=== PATIENT | male | born 1965 | race American Indian/Alaskan Native ===

== ENCOUNTER 2016-05-22 09:47 | Emergency (ER) | payer OTHER ==
[2016-05-22 10:11] VITALS: BP 142/90
[2016-05-22] MEDS ORDERED: MOTRIN PO ONE (13:52)
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
== END 2016-05-22 14:15 | disposition home or self-care (01) ==
LOC: ED 09:47
DX: M54.5 Low back pain (principal); M25.551 Pain in right hip; V89.2XXA Person injured in unspecified motor-vehicle accident, traffic, initial encounter; Y92.488 Other paved roadways as the place of occurrence of the external cause; Y93.89 Activity, other specified; Y99.8 Other external cause status; K21.9 Gastro-esophageal reflux disease without esophagitis; F20.9 Schizophrenia, unspecified; F17.200 Nicotine dependence, unspecified, uncomplicated
CPT/HCPCS: 99282

== ENCOUNTER 2016-07-28 08:51 | Emergency (ER) | payer SELFPAY ==
[2016-07-28 09:44] VITALS: BP 130/77
[2016-07-28 11:13] LABS: Bilirubin,Urine NEG (Negative); Blood,Urine NEG (Negative); Ketones,Urine NEG (Negative); Leukocyte Esterase,Urine NEG (Negative); Nitrite,Urine NEG (Negative); Protein,Urine <15 mg/dL mg/dL (Negative); RBC,Urine < 1.0 /HPF (0.0-6.0); WBC,Urine < 1.0 /HPF (0.0-6.0)
--- NOTE | 2016-07-28 11:32 | Emergency Department Report ---
ED Male HPI - General Chief complaint: Urogenital-Male Stated complaint: RASH/DIFFICULTY URINATING/SIDE PAIN Time Seen by Provider: 07/28/16 11:12 Source: patient Mode of arrival: Ambulatory Limitations: No Limitations - History of Present Illness Initial comments: 51M PMH GERD, Schizophrenia p/w c/o x3-5 weeks of c/o mild difficulty urinating. States he occasionally struggles to void. Denies any penile, scrotal or groin lesions otherwise. Denies any hematuria, denies fever or chills, no abdominal pain, denies nausea or vomiting. States he is concerned his significant other may have had intercourse with someone else, requesting testing for STDs. AAOx3, NAD. denies any rectal pain. Has not seen primary care doctor. MD Complaint: dysuria Onset/Timin -: week(s) Severity: mild Severity scale (0 -10): 2 Quality: burning denies other symptoms - Related Data Previous Rx's Medication Instructions Recorded Last Taken Type HYDROcodone/APAP 7.5-325 [[place] 1 each PO Q6HR PRN #20 tablet 05/02/13 Unknown Rx 7.5/325 mg] Ibuprofen [Motrin 800 MG tab] 800 mg PO Q8HR PRN #30 tablet 05/22/16 Unknown Rx methOCARBAMOL [Robaxin TAB] 500 mg PO BID #20 tab 05/22/16 Unknown Rx Tamsulosin [Flomax] 0.4 mg PO QDAY #14 cap 07/28/16 Unknown Rx Allergies Allergy/AdvReac Type Severity Reaction Status Date / Time No Known Allergies Allergy Unverified 05/02/13 16:56 ED Review of Systems ROS: Stated complaint: RASH/DIFFICULTY URINATING/SIDE PAIN Other details as noted in HPI Constitutional: denies: chills, fever Eyes: denies: eye pain, eye discharge, vision change ENT: denies: ear pain, throat pain Respiratory: denies: cough, shortness of breath, wheezing Cardiovascular: denies: chest pain, palpitations Endocrine: no symptoms reported Gastrointestinal: denies: abdominal pain, nausea, diarrhea Genitourinary: dysuria. denies: urgency Musculoskeletal: denies: back pain, joint swelling, arthralgia Skin: denies: rash, lesions Neurological: denies: headache, weakness, paresthesias Psychiatric: denies: anxiety, depression Hematological/Lymphatic: denies: easy bleeding, easy bruising ED Past Medical Hx - Past Medical History Previous Medical History?: Yes Hx GERD: Yes Hx Psychiatric Treatment: Yes (schizophrenia) - Surgical History Additional Surgical History: Head, ear, knee - Social History Smoking Status: Current Every Day Smoker Substance Use Type: None - Medications Home Medications: Home Medications Medication Instructions Recorded Confirmed Last Taken Type HYDROcodone/APAP 7.5-325 [[place] 1 each PO Q6HR PRN #20 tablet 05/02/13 Unknown Rx 7.5/325 mg] Ibuprofen [Motrin 800 MG tab] 800 mg PO Q8HR PRN #30 tablet 05/22/16 Unknown Rx methOCARBAMOL [Robaxin TAB] 500 mg PO BID #20 tab 05/22/16 Unknown Rx Tamsulosin [Flomax] 0.4 mg PO QDAY #14 cap 07/28/16 Unknown Rx ED Physical Exam - General Limitations: No Limitations General appearance: alert, in no apparent distress - Head Head exam: Present: atraumatic, normocephalic - Eye Eye exam: Present: normal appearance - ENT ENT exam: Present: mucous membranes moist - Neck Neck exam: Present: normal inspection - Respiratory Respiratory exam: Present: normal lung sounds bilaterally. Absent: respiratory distress - Cardiovascular Cardiovascular Exam: Present: regular rate, normal rhythm. Absent: systolic murmur, diastolic murmur, rubs, gallop - GI/Abdominal GI/Abdominal exam: Present: soft, normal bowel sounds - Rectal Rectal exam: Present: deferred, normal prostate (nromal prostated on addison, no pain/tenderness) - Extremities Exam Extremities exam: Present: normal inspection - Back Exam Back exam: Present: normal inspection - Neurological Exam Neurological exam: Present: alert, oriented X3 - Psychiatric Psychiatric exam: Present: normal affect, normal mood - Skin Skin exam: Present: warm, dry, intact, normal color. Absent: rash ED Course Vital Signs 07/28/16 09:40 Temperature 97.3 F L Pulse Rate 69 Respiratory 18 Rate Blood Pressure 130/77 O2 Sat by Pulse 100 Oximetry ED Medical Decision Making - Medical Decision Making A/P: Dysuria, possible urethritis 1-treat patient empirically with azithromycin and ceftriaxone for urethritis. Will give pt trial of flomax for difficulty voiding. 2-gonorrhea Chlamydia culture sent 3-I referred patient to [facility] and primary care centers for further STD testing 4- patient has no signs of acute prostatitis, ADDISON normal, no fever, no testicular pain Critical care attestation.: If time is entered above; I have spent that time in minutes in the direct care of this critically ill patient, excluding procedure time. ED Disposition Clinical Impression: Urethritis Disposition: DISCHARGED TO HOME OR SELFCARE Is pt being admited?: No Does the pt Need Aspirin: No Condition: Stable Instructions: Nonspecific Urethritis in Men (ED), Benign Prostatic Hypertrophy (ED), Dysuria (ED) Prescriptions: Tamsulosin [Flomax] 0.4 mg PO QDAY #14 cap Referrals: [facility] [Outside] - 3-5 Days [facility] [Outside] - 3-5 Days [facility] [Outside] - 3-5 Days [facility] [Provider Group] - 3-5 Days Forms: STI Treatment and Prevention Time of Disposition: 11:44
[2016-07-28] MEDS ORDERED: ZITHROMAX PO ONE (11:34)
[2016-07-28] MEDS ORDERED: ROCEPHIN IM ONE (11:35)
[2016-07-28] MEDS ORDERED: XYLOCAINE 1% MPF 5 mL INFILTRATI ONE (11:35)
== END 2016-07-28 12:12 | disposition home or self-care (01) ==
LOC: ED 08:51
DX: N34.2 Other urethritis (principal); K21.9 Gastro-esophageal reflux disease without esophagitis; F20.9 Schizophrenia, unspecified; F17.200 Nicotine dependence, unspecified, uncomplicated
CPT/HCPCS: 81001; 87591; 96372; 99283; J0696

== ENCOUNTER 2017-01-22 18:57 | Emergency (ER) | payer SELFPAY ==
[2017-01-23] MEDS ORDERED: ZITHROMAX PO ONE (08:16)
[2017-01-23] MEDS ORDERED: ROBITUSSIN PO ONE (08:16)
--- NOTE | 2017-01-23 08:31 | Emergency Department Report ---
HPI - General Chief Complaint: Upper Respiratory Infection Time Seen by Provider: 01/23/17 08:04 - HPI HPI: Patient is a 51-year-old male who presents to ED complaining of cough for the past 3 weeks. Patient states he is also has some runny nose. Patient's describes cough as intermittent throughout the day with the yellow productive sputum. Patient denies fevers/chills/nausea/vomiting/abdominal pain this chest pain/shortness of breath or any other problems. Patient states he's been taking [id number] medications and has not worked. Patient also states she would like a refill of his Flomax. ED Past Medical Hx - Past Medical History Hx GERD: Yes Hx Psychiatric Treatment: Yes (schizophrenia) - Surgical History Additional Surgical History: Head, ear, knee - Social History Smoking Status: Current Every Day Smoker Substance Use Type: None - Medications Home Medications: Home Medications Medication Instructions Recorded Confirmed Last Taken Type HYDROcodone/APAP 7.5-325 [[place] 1 each PO Q6HR PRN #20 tablet 05/02/13 Unknown Rx 7.5/325 mg] Ibuprofen [Motrin 800 MG tab] 800 mg PO Q8HR PRN #30 tablet 05/22/16 Unknown Rx methOCARBAMOL [Robaxin TAB] 500 mg PO BID #20 tab 05/22/16 Unknown Rx Azithromycin [Zithromax TAB] 500 mg PO QDAY #5 tablet 01/23/17 Unknown Rx Tamsulosin [Flomax] 0.4 mg PO QDAY #14 cap 01/23/17 Unknown Rx guaiFENesin [Robitussin] 200 mg PO Q6HR #20 tablet 01/23/17 Unknown Rx ED Review of Systems ROS: Stated complaint: Other details as noted in HPI Constitutional: denies: chills, fever Eyes: denies: eye pain, eye discharge, vision change ENT: denies: ear pain, throat pain Respiratory: denies: cough, shortness of breath, wheezing Cardiovascular: denies: chest pain, palpitations Endocrine: no symptoms reported Gastrointestinal: denies: abdominal pain, nausea, diarrhea Genitourinary: denies: urgency, dysuria Musculoskeletal: denies: back pain, joint swelling, arthralgia Skin: denies: rash, lesions Neurological: denies: headache, weakness, paresthesias Psychiatric: denies: anxiety, depression Hematological/Lymphatic: denies: easy bleeding, easy bruising Physical Exam - Physical Exam Physical Exam: GENERAL: Alert and oriented x3, no apparent distress, intermittent coughing , Normal Gait, atraumatic. HEAD: Head is normocephalic and a-traumatic. EYES: Extra ocular muscles are intact. Pupils are equal, round, and reactive to light and accommodation. EARS: symetrical, atraumatic, non tender, ear canal clear and moderate cerumen, tympanic membrance non inflamed. gross auditory nml bilaterally. NOSE: Nose symetrical, Nontender,Nares appeared normal. MOUTH:Mouth is well hydrated and without lesions. Tonsils nonerythematous or swollen, postnasal drip, Uvula midline, Mucous membranes are moist. Posterior pharynx clear, no exudate or lesions. Patent airways. NECK: Supple. Non edematous,No lymphadenopathy or thyromegaly. No C-spine tenderness LUNGS: Symetrical with respiration, No wheezing, no rales or crackles, CTAB. HEART: S1, S2 present, regular rate and rhythm without murmur, no rubs, no gallops. Non tender to palpation ABDOMEN: No organomegaly was noted,Positive bowel sounds, soft, and non- distended. . Nontender to palpation on all Quadrants, NO CVA tenderness. BACK: Full range of motion, no spinal tenderness, nontender to palpation. SKIN: Warm and dry, No lesions, No ulceration or induration present. ED Medical Decision Making - Medical Decision Making 51 y o male presents to ED with upper respiratory infection ED course: Patient received Robitussin and azithromycin and ED Vital signs are normal throughout ED stay. Discussed with patient symptomatic relief us while the antibiotics and follow up with his regular care physician. Referrals given discussed the patient follow-up. Vital signs are normal prior to discharge patient is in no acute respiratory distress Critical care attestation.: If time is entered above; I have spent that time in minutes in the direct care of this critically ill patient, excluding procedure time. ED Disposition Clinical Impression: URI (upper respiratory infection) Qualifiers: URI type: unspecified URI Qualified Code(s): J06.9 - Acute upper respiratory infection, unspecified Disposition: TO HOME OR SELFCARE Is pt being admited?: No Does the pt Need Aspirin: No Condition: Stable Instructions: Upper Respiratory Infection (ED), Chronic Bronchitis (ED) Prescriptions: Azithromycin [Zithromax TAB] 500 mg PO QDAY #5 tablet guaiFENesin [Robitussin] 200 mg PO Q6HR #20 tablet Tamsulosin [Flomax] 0.4 mg PO QDAY #14 cap Referrals: PRIMARY CARE, [Primary Care Provider] - 3-5 Days [facility] [Outside] - 3-5 Days [facility] [Outside] - 3-5 Days [facility] [Outside] - 3-5 Days Forms: Work/School Release Form(ED) Time of Disposition: 08:36
[2017-01-23 08:43] VITALS: BP 125/80
== END 2017-01-23 08:46 | disposition home or self-care (01) ==
LOC: ED 18:57
DX: J06.9 Acute upper respiratory infection, unspecified (principal); K21.9 Gastro-esophageal reflux disease without esophagitis; F20.9 Schizophrenia, unspecified; F17.200 Nicotine dependence, unspecified, uncomplicated
CPT/HCPCS: 99282

== ENCOUNTER 2017-03-10 05:22 | Emergency (ER) | payer SELFPAY ==
[2017-03-10 06:51] VITALS: BP 140/88
[2017-03-10 07:18] LABS: Bilirubin,Urine NEG (Negative); Blood,Urine NEG (Negative); Ketones,Urine NEG (Negative); Leukocyte Esterase,Urine TR (Negative); Mucus,Urine 1+ /HPF; Nitrite,Urine NEG (Negative); Protein,Urine <15 mg/dL mg/dL (Negative)
== END 2017-03-10 06:52 | disposition left against medical advice (07) ==
LOC: ED 05:22
DX: R30.0 Dysuria (principal); Z53.21 Procedure and treatment not carried out due to patient leaving prior to being seen by health care provider
CPT/HCPCS: 81001; 82962; 87591

== ENCOUNTER 2017-04-06 02:57 | Emergency (ER) | payer SELFPAY ==
[2017-04-06 03:56] LABS: Basophils % (Auto) 0.7 % (0.0-1.8); Eosinophils % (Auto) 4.7 % (0.0-4.3); Hematocrit 45.8 % (35.5-45.6); Hemoglobin 15.8 gm/dl (11.8-15.2); Mean Corpuscular HGB Conc 34 % (32-34); Mean Corpuscular Hemoglobin 33 pg (28-32); Mean Corpuscular Volume 95 fl (84-94); Platelet Count 259 K/mm3 (140-440); Red Blood Count 4.84 M/mm3 (3.65-5.03); Red Cell Distribution Width 12.9 % (13.2-15.2); White Blood Count 7.6 K/mm3 (4.5-11.0)
[2017-04-06 04:24] LABS: Alanine Aminotransferase 15 units/L (7-56); Albumin 4.1 g/dL (3.9-5); Albumin/Globulin Ratio 1.6 %; Alkaline Phosphatase 75 units/L (35-129); Anion Gap 17 mmol/L; BUN/Creatinine Ratio 13; Blood Urea Nitrogen 10 mg/dL (9-20); Calcium 9.2 mg/dL (8.4-10.2); Carbon Dioxide 29 mmol/L (22-30); Chloride 99.3 mmol/L (98-107); Glucose 129 mg/dL (75-100); Lipase 63 units/L (13-60); Sodium 141 mmol/L (137-145); Total Protein 6.6 g/dL (6.3-8.2)
[2017-04-06] MEDS ORDERED: HALDOL IM PRN (07:39)
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
--- NOTE | 2017-04-06 08:39 | Cat Scan Report ---
FINAL REPORT PROCEDURE: CT HEAD/BRAIN WO CON TECHNIQUE: Computerized tomography of the head was performed without contrast material. HISTORY: ams COMPARISON: None FINDINGS: Brain volume is age appropriate. There is no intra or extra-axial hemorrhage. There is no CT evident acute infarction. There is no advanced microvascular ischemic change or suggested demyelinating disease. There is no gross mass lesion or leptomeningeal abnormality given limitation of lack of IV contrast. The skull base and calvarium are intact. The partially visualized, mastoid air cells and middle ears are clear. IMPRESSION: No CT evident intracranial pathology.
--- NOTE | 2017-04-06 08:52 | Cat Scan Report ---
FINAL REPORT PROCEDURE: CT CERVICAL SPINE WO CON TECHNIQUE: Computerized tomography of the cervical spine was performed without contrast material. HISTORY: ams COMPARISON: None FINDINGS: Partially included on the examination are emphysematous changes of the lung apices. Asymmetrical opacity possibly scarring at the left lung apex medially 2.1 x 2.6 centimeters is present. There is no CT evident vertebral body or posterior element fracture. There is no subluxation. Thick anterior osteophyte formation extending from C2 through T1 levels is present. Mild multilevel degenerative disc disease is seen. 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 There is no significant foraminal stenosis. Mild facet DJD is seen. There is no evident disc herniation. IMPRESSION: Changes of diffuse idiopathic skeletal hyperostosis suspected. 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 No evident fracture or subluxation. Mild degenerative changes. If desired, most complete exclusion of pathology particularly cord contusion and ligamentous injury may be made with MRI. Emphysematous changes. 2.1 x 2.6 centimeter left apical opacity possibly scarring. Partially imaged mass is not excluded. CT of the chest would be of benefit for further evaluation.
[2017-04-06 09:45] LABS: Urine Drugs of Abuse Note Disclamer
--- NOTE | 2017-04-06 09:54 | Cat Scan Report ---
FINAL REPORT PROCEDURE: CT ABDOMEN PELVIS WO CON TECHNIQUE: Computerized axial tomography of the abdomen and pelvis was performed without intravenous contrast. This study is performed without intravascular contrast material and its sensitivity for abdominal and pelvic pathology, including neoplasms, inflammation, abscess, free fluid, thrombosis, arterial dissection and infarction, is reduced compared with a contrast enhanced study. Oral contrast was not administered limiting evaluation of the bowel as well. HISTORY: flank pain COMPARISON: None FINDINGS: Visualized lower thorax: No significant abnormality. Liver: A couple of hypodensities the largest of which is in the central liver 8.6 millimeters. Spleen: Normal size and attenuation. Gallbladder and biliary system: Contracted not well seen gallbladder. No biliary ductal obstruction. Pancreas: Normal. Adrenals: Normal. Kidneys: Normal right kidney. 5.7 millimeters subtle hypodensity of the left kidney. No bilateral renal calculus or hydronephrosis. GI tract: No focal abnormality. Normal appendix.. Lymph nodes and mesentery: No mesenteric mass. Paucity of fat limits evaluation lymphadenopathy no gross pathologic lymph node. Vasculature: Normal. Bladder: Normal. Reproductive organs: Normal. Peritoneum: No free fluid. Musculoskeletal structures: Mild degenerative changes of the spine and hips.. Other: None. IMPRESSION: Suspect subtle hepatic as well as left renal cyst. This may be confirmed with contrast-enhanced CT or ultrasound.
[2017-04-06 09:59] LABS: Bacteria,Urine 1+ /HPF (Negative); Bilirubin,Urine NEG (Negative); Blood,Urine NEG (Negative); Ketones,Urine NEG (Negative); Leukocyte Esterase,Urine NEG (Negative); Mucus,Urine FEW /HPF; Nitrite,Urine NEG (Negative); Protein,Urine <15 mg/dL mg/dL (Negative)
[2017-04-06 10:06] LABS: RBC,Urine < 1.0 /HPF (0.0-6.0)
[2017-04-06] MEDS: ATIVAN IM PRN (20:26)
--- NOTE | 2017-04-07 16:24 | Consultation ---
History of Present Illness - Reason for Consult Consult date: 04/07/17 Reason for consult: psychiatric consult - Chief Complaint Chief complaint: "I went ham" - History of Present Psychiatric Illness 51 year old AA male presents with medical concern of being unable to urinate. While in ER, he became angry and says "I called them sissies and fts, said it was a black/white thing, and went ham on them." He states he carried on this way until he was brought back in the ER and told to put a gown on. He is not angry on interview but appears labile. He presents with no psychosis and says "I overcame that." He says his social security was cut off on the grounds that he did not go for treatment over the years. He was treated with tegretol and risperdal while in [facility]. He was released 2015 and has been going for outpatient mental health since. It is unclear if he is compliant. He says he has the medication with his belonging but the medications are wet. He is homeless and cannot give a clear answer on where he stays or plans to stay. He mentioned different places, all of which make sense. He denies any SI or HI and says he did not mean it when he said it. Urine drug screen is positive for cocaine and marijuana. Medications and Allergies Allergies Allergy/AdvReac Type Severity Reaction Status Date / Time No Known Allergies Allergy Unverified 05/02/13 16:56 Home Medications Medication Instructions Recorded Confirmed Last Taken Type HYDROcodone/APAP 7.5-325 [[place] 1 each PO Q6HR PRN #20 tablet 05/02/13 04/07/17 Unknown Rx 7.5/325 mg] Ibuprofen [Motrin 800 MG tab] 800 mg PO Q8HR PRN #30 tablet 05/22/16 04/07/17 Unknown Rx methOCARBAMOL [Robaxin TAB] 500 mg PO BID #20 tab 05/22/16 04/07/17 Unknown Rx Azithromycin [Zithromax TAB] 500 mg PO QDAY #5 tablet 01/23/17 04/07/17 Unknown Rx Tamsulosin [Flomax] 0.4 mg PO QDAY #14 cap 01/23/17 04/07/17 Unknown Rx guaiFENesin [Robitussin] 200 mg PO Q6HR #20 tablet 01/23/17 04/07/17 Unknown Rx Active Meds: Active Medications Haloperidol Lactate (Haldol) 5 mg IM Q6HR PRN PRN Reason: Agitation Lorazepam (Ativan) 2 mg IM Q4HR PRN PRN Reason: Agitation Last Admin: 04/06/17 20:26 Dose: 2 mg Past psychiatric history - Past Medical History Past Medical History: other (urinary complaints) - Social History Social history: smoking, other (homeless. cocaine) Mental Status Exam - Vital signs Last Vital Signs Temp 97.9 F 04/07/17 07:50 Pulse 57 L 04/07/17 07:50 Resp 20 04/07/17 07:50 BP 125/80 04/07/17 07:50 Pulse Ox 968 H 04/07/17 07:50 - Exam Orientation: time, place, person Affect: agitated Mood: congruent with affect Thought content: other (denies suicidal or homicidal ideation) Thought Process: Tangential Perceptions: none Speech: normal rate and pattern Concentration: distractible Motor activity: tense Level of consciousness: alert Memory: Intact Sleep Symptoms: Restless Interaction: irritable Results Result Diagrams: 04/06/17 03:40 04/06/17 03:40 All other labs normal. Assessment and Plan Assessment and plan: Impression: He made statements he was going to harm one of the nurses. He admits to this and says he did not mean it. He does not have a firearm. He has mood lability, likely due to cocaine use. He reports a history of schizophrenia/bipolar and usually takes tegretol and risperdal. His compliance is in question. substance induced mood d/o is likely. He denies current psychotic symptoms. Post interview he was verbally aggressive with the physician without provocation. cocaine use disorder Recommendation: Continue 1013 and will interview in 24 hours to determine need for continued involuntary hold. Start tegretol 100mg bid (he was unsure of the dose).
[2017-04-07] MEDS: ATIVAN IM PRN (19:30)
--- NOTE | 2017-04-08 17:41 | Progress Note ---
Subjective - Reason for Consult Consult date: 04/08/17 Reason for consult: follow up - Chief Complaint Chief complaint: "I'm cool, calm, and collected now." 51 year old AA male presents with medical concern of being unable to urinate. While in ER, he became angry and says "I called them sissies and fts, said it was a black/white thing, and went ham on them." He states he carried on this way until he was brought back in the ER and told to put a gown on. He is calm today and able to discuss the circumstances of his stay. He is homeless and says he is able to find resources for housing. He does not want help from clinical social work aide. He maintains denial of SI or HI and says he did not mean it when he said it. He acknowledges cocaine use. He denies side effects to tegretol and wants a prescription. Mental Status Exam - Vital signs Last Vital Signs Temp 98.7 F 04/08/17 08:45 Pulse 84 04/08/17 08:45 Resp 18 04/08/17 08:45 BP 120/82 04/08/17 08:45 Pulse Ox 100 04/08/17 08:45 - Exam Narrative exam: Orientation: time, place, person Affect: agitated Mood: congruent with affect Thought content: other (denies suicidal or homicidal ideation) Thought Process: linear Perceptions: none Speech: normal rate and pattern Concentration: focused Motor activity: within normal limits Level of consciousness: alert Memory: Intact Sleep Symptoms: reports sleep is "good" Interaction: calm Assessment and Plan Impression: He made statements he was going to harm one of the nurses. He admits to this and says he did not mean it. He does not have a firearm. He has mood lability, likely due to cocaine use. Considering his improvement in behavior, there is high likelihood of his behavior being a result of cocaine use. He reports a history of schizophrenia/bipolar and usually takes tegretol and risperdal. His compliance is in question. substance induced mood d/o is likely. He denies current psychotic symptoms. Today, he is calm. No behavioral disturbances reported by staff or patient. He is a low risk of harm to himself or others. cocaine use disorder Recommendation: Rescind the 1013. Recommend continuing the tegretol and following up with the [facility] for outpatient mental health treatment.
--- NOTE | 2017-04-08 18:08 | Emergency Department Report ---
Blank Doc - Documentation Documentation: Patient was in the ED several days on 1013. After mental health review it was determined the patient was not exhibiting any suicidal or homicidal ideation and at 1013 may be rescinded. His labile mood was likely secondary to cocaine abuse and questionable medication compliance. Patient be discharged home with outpatient follow-up likely in [place] and his Tegretol 100 mg twice a day will be continued as recommended by mental health.
[2017-04-08 18:27] VITALS: BP 125/78
== END 2017-04-08 18:26 | disposition home or self-care (01) ==
LOC: EEVIPCON 02:57 → ED 02:57
DX: R30.9 Painful micturition, unspecified (principal); E11.9 Type 2 diabetes mellitus without complications; K21.9 Gastro-esophageal reflux disease without esophagitis; F20.9 Schizophrenia, unspecified; F17.200 Nicotine dependence, unspecified, uncomplicated
CPT/HCPCS: 36415; 70450; 72125; 74176; 80053; 80307; 81001; 82550; 83690; 85025; 93005; 93010; 96372; 99284; G0480; J1630; J2060; 80320

== ENCOUNTER 2017-04-11 06:06 | Emergency (ER) | payer OTHER ==
[2017-04-11 06:51] VITALS: BP 132/90
--- NOTE | 2017-04-11 08:02 | Emergency Department Report ---
ED Male HPI - General Chief complaint: Urogenital-Male Stated complaint: POSSIBLE STD Time Seen by Provider: 04/11/17 07:49 Source: patient Mode of arrival: Ambulatory Limitations: No Limitations - History of Present Illness Initial comments: This is a 51-year-old male nontoxic, well nourished in appearance, no acute signs of distress presents to the ED with c/o of dysuria x3 days. Patient stated he is also concerned about STD exposure. Patient denies any penile discharge, penile ulcers, fever, chills, nausea, vomiting, back pain, chest pain , shortness of breath, abdominal pain, headache or stiff neck. Patient denies any allergies. Past medical history includes diabetes and GERD and schizophrenia. MD Complaint: dysuria, other (possible STD) -: days(s) (3) Location: penis Radiation: none Severity: mild Severity scale (0 -10): 8 Quality: burning Consistency: constant Improves with: none Worsens with: urination dysuria. denies: discharge, swelling, mass, rash, urinary retention, blood in urine, fever, nausea/vomiting, incontinence - Related Data Previous Rx's Medication Instructions Recorded Last Taken Type HYDROcodone/APAP 7.5-325 [[place] 1 each PO Q6HR PRN #20 tablet 05/02/13 Unknown Rx 7.5/325 mg] Ibuprofen [Motrin 800 MG tab] 800 mg PO Q8HR PRN #30 tablet 05/22/16 Unknown Rx methOCARBAMOL [Robaxin TAB] 500 mg PO BID #20 tab 05/22/16 Unknown Rx Azithromycin [Zithromax TAB] 500 mg PO QDAY #5 tablet 01/23/17 Unknown Rx Tamsulosin [Flomax] 0.4 mg PO QDAY #14 cap 01/23/17 Unknown Rx guaiFENesin [Robitussin] 200 mg PO Q6HR #20 tablet 01/23/17 Unknown Rx carBAMazepine [TEGretol] 100 mg PO BID #60 tablet 04/08/17 Unknown Rx Allergies Allergy/AdvReac Type Severity Reaction Status Date / Time No Known Allergies Allergy Unverified 05/02/13 16:56 ED Review of Systems ROS: Stated complaint: POSSIBLE STD Other details as noted in HPI Constitutional: denies: chills, fever Eyes: denies: eye pain, eye discharge, vision change ENT: denies: ear pain, throat pain Respiratory: denies: cough, shortness of breath, wheezing Cardiovascular: denies: chest pain, palpitations Endocrine: no symptoms reported Gastrointestinal: denies: abdominal pain, nausea, diarrhea Genitourinary: dysuria. denies: urgency Musculoskeletal: denies: back pain, joint swelling, arthralgia Skin: denies: rash, lesions Neurological: denies: headache, weakness, paresthesias Psychiatric: denies: anxiety, depression Hematological/Lymphatic: denies: easy bleeding, easy bruising ED Past Medical Hx - Past Medical History Previous Medical History?: Yes Hx Diabetes: Yes Hx GERD: Yes Hx Psychiatric Treatment: Yes (schizophrenia) - Surgical History Past Surgical History?: Yes Additional Surgical History: Head, ear, knee - Social History Smoking Status: Never Smoker Substance Use Type: None - Medications Home Medications: Home Medications Medication Instructions Recorded Confirmed Last Taken Type HYDROcodone/APAP 7.5-325 [Greene 1 each PO Q6HR PRN #20 tablet 05/02/13 04/07/17 Unknown Rx 7.5/325 mg] Ibuprofen [Motrin 800 MG tab] 800 mg PO Q8HR PRN #30 tablet 05/22/16 04/07/17 Unknown Rx methOCARBAMOL [Robaxin TAB] 500 mg PO BID #20 tab 05/22/16 04/07/17 Unknown Rx Azithromycin [Zithromax TAB] 500 mg PO QDAY #5 tablet 01/23/17 04/07/17 Unknown Rx Tamsulosin [Flomax] 0.4 mg PO QDAY #14 cap 01/23/17 04/07/17 Unknown Rx guaiFENesin [Robitussin] 200 mg PO Q6HR #20 tablet 01/23/17 04/07/17 Unknown Rx carBAMazepine [TEGretol] 100 mg PO BID #60 tablet 04/08/17 Unknown Rx ED Physical Exam - General Limitations: No Limitations General appearance: alert, in no apparent distress - Head Head exam: Present: atraumatic, normocephalic, normal inspection - Eye Eye exam: Present: normal appearance, PERRL, EOMI. Absent: scleral icterus, conjunctival injection, nystagmus, periorbital swelling, periorbital tenderness Pupils: Present: normal accommodation - ENT ENT exam: Present: normal exam, normal orophraynx, mucous membranes moist, TM's normal bilaterally, normal external ear exam - Neck Neck exam: Present: normal inspection, full ROM. Absent: tenderness, meningismus, lymphadenopathy, thyromegaly - Respiratory Respiratory exam: Present: normal lung sounds bilaterally. Absent: respiratory distress, wheezes, rales, rhonchi, stridor, chest wall tenderness, accessory muscle use, decreased breath sounds, prolonged expiratory - Cardiovascular Cardiovascular Exam: Present: regular rate, normal rhythm, normal heart sounds. Absent: irregular rhythm, systolic murmur, diastolic murmur, rubs, gallop - GI/Abdominal GI/Abdominal exam: Present: soft, normal bowel sounds. Absent: distended, tenderness, guarding, rebound, rigid, diminished bowel sounds - Rectal Rectal exam: Present: deferred - exam: Present: normal inspection. Absent: testicular tenderness, urethral discharge, scrotal swelling, vertical testicular lie, circumcision External exam: Present: normal external exam, other (No penile ulcers ). Absent : erythema, swelling, lesions, lacerations, ecchymosis, bleeding - Extremities Exam Extremities exam: Present: normal inspection, full ROM, normal capillary refill. Absent: tenderness, pedal edema, joint swelling, calf tenderness - Back Exam Back exam: Present: normal inspection, full ROM. Absent: tenderness, CVA tenderness (R), CVA tenderness (L), muscle spasm, paraspinal tenderness, vertebral tenderness, rash noted - Neurological Exam Neurological exam: Present: alert, oriented X3, CN II-XII intact, normal gait, reflexes normal - Psychiatric Psychiatric exam: Present: normal affect, normal mood - Skin Skin exam: Present: warm, dry, intact, normal color. Absent: rash ED Course Vital Signs 04/11/17 04/11/17 04/11/17 06:22 06:35 07:44 Temperature 99.9 F H 99.0 F Pulse Rate 88 88 Respiratory 16 17 18 Rate Blood Pressure 132/90 Blood Pressure 132/90 [Right] O2 Sat by Pulse 99 99 Oximetry - Reevaluation(s) Reevaluation #1: 04/11/17 08:05 Patient is speaking in full sentences with no signs of distress noted. ED Medical Decision Making - Medical Decision Making This is a 51-year-old male that presents with possible STD exposre. Patient is stable and was examined by me. UA obtained and gonorrhea/chlamydia. Patient was instructed to return in 2 days to obtain results of gonorrhea and chlamydia. Patient elected to be treated empirically for GC. Patient received Rocephin and azithromycin. Patient was instructed to have his partner follow- up with a primary care doctor as well. Patient was instructed Follow-up with a primary care doctor in 3-5 days or if symptoms worsen and continue return to emergency room as soon as possible. At time time of discharge, the patient does not seem toxic or ill in appearance. No acute signs of distress noted. Patient agrees to discharge treatment plan of care. No further questions noted by the patient. Critical care attestation.: If time is entered above; I have spent that time in minutes in the direct care of this critically ill patient, excluding procedure time. ED Disposition Clinical Impression: Possible exposure to STD Disposition: DC-01 TO HOME OR SELFCARE Is pt being admited?: No Does the pt Need Aspirin: No Condition: Stable Instructions: Safe Sex (ED) Additional Instructions: Follow-up with a primary care doctor in 3-5 days or if symptoms worsen and continue return to emergency room as soon as possible. Return in 3 days to obtained results of gonorrhea/chlamydia Referrals: DANA PUGH MD [Primary Care Provider] - 3-5 Days JASMIN CARDONA MD [Staff Physician] - 3-5 Days [facility] [Outside] - 3-5 Days [facility] [Outside] - 3-5 Days Forms: Work/School Release Form(ED)
[2017-04-11 08:08] LABS: Bilirubin,Urine NEG (Negative); Blood,Urine NEG (Negative); Ketones,Urine NEG (Negative); Leukocyte Esterase,Urine TR (Negative); Mucus,Urine FEW /HPF; Nitrite,Urine NEG (Negative); Protein,Urine <15 mg/dL mg/dL (Negative)
[2017-04-11] MEDS ORDERED: ZITHROMAX PO ONE (08:10)
[2017-04-11] MEDS ORDERED: XYLOCAINE 1% MPF 5 mL INFILTRATI ONE (08:10)
[2017-04-11] MEDS ORDERED: ROCEPHIN IM ONE (08:10)
== END 2017-04-11 08:55 | disposition home or self-care (01) ==
LOC: ED 06:06
DX: R30.0 Dysuria (principal); E11.9 Type 2 diabetes mellitus without complications; K21.9 Gastro-esophageal reflux disease without esophagitis
CPT/HCPCS: 81001; 96372; 99283; J0696

== ENCOUNTER 2017-04-21 22:39 | Emergency (ER) | payer OTHER ==
[2017-04-21 23:25] VITALS: BP 125/87
[2017-04-22 00:05] LABS: Basophils % (Auto) 0.6 % (0.0-1.8); Eosinophils % (Auto) 4.8 % (0.0-4.3); Hematocrit 42.5 % (35.5-45.6); Hemoglobin 14.8 gm/dl (11.8-15.2); Mean Corpuscular HGB Conc 35 % (32-34); Mean Corpuscular Hemoglobin 33 pg (28-32); Mean Corpuscular Volume 95 fl (84-94); Platelet Count 284 K/mm3 (140-440); Red Blood Count 4.48 M/mm3 (3.65-5.03); White Blood Count 9.2 K/mm3 (4.5-11.0)
[2017-04-22 00:11] LABS: Alanine Aminotransferase 17 units/L (7-56); Albumin 4.2 g/dL (3.9-5); Albumin/Globulin Ratio 1.8 %; Alkaline Phosphatase 72 units/L (35-129); Anion Gap 19 mmol/L; BUN/Creatinine Ratio 9; Blood Urea Nitrogen 8 mg/dL (9-20); Calcium 9.3 mg/dL (8.4-10.2); Carbon Dioxide 26 mmol/L (22-30); Chloride 104.6 mmol/L (98-107); Glucose 124 mg/dL (75-100); Lipase 42 units/L (13-60); Potassium 4.1 mmol/L (3.6-5.0); Sodium 145 mmol/L (137-145); Total Protein 6.5 g/dL (6.3-8.2)
[2017-04-22 00:23] LABS: Bilirubin,Urine NEG (Negative); Blood,Urine NEG (Negative); Ketones,Urine NEG (Negative); Leukocyte Esterase,Urine NEG (Negative); Mucus,Urine FEW /HPF; Nitrite,Urine NEG (Negative); Protein,Urine <15 mg/dL mg/dL (Negative)
== END 2017-04-22 04:45 | disposition left against medical advice (07) ==
LOC: ED 22:39
DX: R10.9 Unspecified abdominal pain (principal); Z53.21 Procedure and treatment not carried out due to patient leaving prior to being seen by health care provider
CPT/HCPCS: 36415; 80053; 81001; 83690; 85025

== ENCOUNTER 2017-04-22 09:06 | Emergency (ER) | payer SELFPAY ==
[2017-04-22 09:46] VITALS: BP 116/83
== END 2017-04-22 10:10 | disposition left against medical advice (07) ==
LOC: ED 09:06
DX: Z53.21 Procedure and treatment not carried out due to patient leaving prior to being seen by health care provider (principal)

== ENCOUNTER 2017-04-28 01:53 | Emergency (ER) | payer OTHER ==
[2017-04-28 03:08] VITALS: BP 104/57
[2017-04-28 04:15] LABS: Bilirubin,Urine NEG (Negative); Blood,Urine NEG (Negative); Ketones,Urine NEG (Negative); Leukocyte Esterase,Urine NEG (Negative); Mucus,Urine FEW /HPF; Nitrite,Urine NEG (Negative); Protein,Urine <15 mg/dL mg/dL (Negative)
--- NOTE | 2017-04-28 04:47 | Emergency Department Report ---
ED Male HPI - General Chief complaint: Urogenital-Male Stated complaint: PAINFUL URINE Time Seen by Provider: 04/28/17 04:00 Source: patient Mode of arrival: Ambulatory Limitations: No Limitations - History of Present Illness Initial comments: Patient reports that he was having painful urination and greenish penile discharge 1 week. Patient comes here frequently for similar incidents. He was here last on 04/08/2017. Patient states that he does not have sex and he doesn't know why he is having greenish penile discharge. He reports that painful urination at 9 out of 10. He said he just got out of assisted today and would like to be checked. Denies any fever or chills. Denies any abdominal pain or back pain. Denies any nausea vomiting or diarrhea. Denies any fever or chills. No [id number] medication taken. Patient is active and for some food and a place to sleep. MD Complaint: penile discharge, dysuria Onset/Timin -: week(s) Location: penis (urine burning) Severity: severe Severity scale (0 -10): 9 Quality: burning Consistency: intermittent Worsens with: urination discharge, dysuria. denies: swelling, mass, rash, urinary retention, blood in urine, fever, nausea/vomiting, incontinence - Related Data Sexually active: No Previous Rx's Medication Instructions Recorded Last Taken Type HYDROcodone/APAP 7.5-325 [[place] 1 each PO Q6HR PRN #20 tablet 05/02/13 Unknown Rx 7.5/325 mg] Ibuprofen [Motrin 800 MG tab] 800 mg PO Q8HR PRN #30 tablet 05/22/16 Unknown Rx methOCARBAMOL [Robaxin TAB] 500 mg PO BID #20 tab 05/22/16 Unknown Rx Azithromycin [Zithromax TAB] 500 mg PO QDAY #5 tablet 01/23/17 Unknown Rx Tamsulosin [Flomax] 0.4 mg PO QDAY #14 cap 01/23/17 Unknown Rx guaiFENesin [Robitussin] 200 mg PO Q6HR #20 tablet 01/23/17 Unknown Rx carBAMazepine [TEGretol] 100 mg PO BID #60 tablet 04/08/17 Unknown Rx Allergies Allergy/AdvReac Type Severity Reaction Status Date / Time No Known Allergies Allergy Unverified 05/02/13 16:56 ED Review of Systems ROS: Stated complaint: PAINFUL URINE Other details as noted in HPI Comment: All other systems reviewed and negative Constitutional: no symptoms reported Respiratory: no symptoms reported Cardiovascular: denies: chest pain, palpitations, dyspnea on exertion, orthopnea , edema, syncope, paroxysmal nocturnal dyspnea Gastrointestinal: denies: abdominal pain, nausea, vomiting, diarrhea, constipation, hematemesis, melena, hematochezia Genitourinary: dysuria, discharge. denies: urgency, frequency, hematuria, testicular pain, testicular mass Musculoskeletal: denies: back pain, joint swelling, arthralgia, myalgia Skin: denies: rash Neurological: denies: headache, weakness, numbness, paresthesias, confusion, abnormal gait, vertigo ED Past Medical Hx - Past Medical History Previous Medical History?: Yes Hx Diabetes: Yes Hx GERD: Yes Hx Psychiatric Treatment: Yes (schizophrenia) - Surgical History Past Surgical History?: Yes Additional Surgical History: Head, ear, knee - Family History Family history: no significant - Social History Smoking Status: Current Every Day Smoker Substance Use Type: Marijuana - Medications Home Medications: Home Medications Medication Instructions Recorded Confirmed Last Taken Type HYDROcodone/APAP 7.5-325 [[place] 1 each PO Q6HR PRN #20 tablet 05/02/13 04/07/17 Unknown Rx 7.5/325 mg] Ibuprofen [Motrin 800 MG tab] 800 mg PO Q8HR PRN #30 tablet 05/22/16 04/07/17 Unknown Rx methOCARBAMOL [Robaxin TAB] 500 mg PO BID #20 tab 05/22/16 04/07/17 Unknown Rx Azithromycin [Zithromax TAB] 500 mg PO QDAY #5 tablet 01/23/17 04/07/17 Unknown Rx Tamsulosin [Flomax] 0.4 mg PO QDAY #14 cap 01/23/17 04/07/17 Unknown Rx guaiFENesin [Robitussin] 200 mg PO Q6HR #20 tablet 01/23/17 04/07/17 Unknown Rx carBAMazepine [TEGretol] 100 mg PO BID #60 tablet 04/08/17 Unknown Rx ED Physical Exam - General Limitations: No Limitations General appearance: alert, in no apparent distress - Head Head exam: Present: atraumatic, normocephalic, normal inspection - Eye Eye exam: Present: normal appearance, PERRL, EOMI Pupils: Present: normal accommodation - ENT ENT exam: Present: normal exam, normal orophraynx, mucous membranes moist, TM's normal bilaterally, normal external ear exam - Neck Neck exam: Present: normal inspection, full ROM. Absent: tenderness, meningismus, lymphadenopathy, thyromegaly - Respiratory Respiratory exam: Present: normal lung sounds bilaterally. Absent: respiratory distress, chest wall tenderness - Cardiovascular Cardiovascular Exam: Present: regular rate, normal rhythm, normal heart sounds. Absent: systolic murmur, diastolic murmur - GI/Abdominal GI/Abdominal exam: Present: soft, normal bowel sounds. Absent: distended, tenderness, guarding, rebound, rigid - Extremities Exam Extremities exam: Present: normal inspection, full ROM, normal capillary refill , other (No CCE, +2 pulses to all extremities). Absent: tenderness, pedal edema , joint swelling, calf tenderness - Back Exam Back exam: Present: normal inspection, full ROM. Absent: tenderness, CVA tenderness (R), CVA tenderness (L), muscle spasm, paraspinal tenderness, vertebral tenderness, rash noted - Neurological Exam Neurological exam: Present: alert, oriented X3, normal gait - Psychiatric Psychiatric exam: Present: other (patient with very aggressive behavior) - Skin Skin exam: Present: warm, dry, intact, normal color. Absent: rash ED Course Vital Signs 04/28/17 03:03 Temperature 98.2 F Pulse Rate 93 H Respiratory 16 Rate Blood Pressure 104/57 O2 Sat by Pulse 100 Oximetry - Reevaluation(s) Reevaluation #1: 04/28/17 05:06 stable ed stay ED Medical Decision Making - Lab Data Lab Results 04/28/17 Range/Units Unknown Urine Color Yellow (Yellow) Urine Turbidity Clear (Clear) Urine pH 5.0 (5.0-7.0) Ur Specific [place] 1.025 (1.003-1.030) Urine Protein <15 mg/dl (Negative) mg/dL Urine Glucose (UA) Neg (Negative) mg/dL Urine Ketones Neg (Negative) mg/dL Urine Blood Neg (Negative) Urine Nitrite Neg (Negative) Urine Bilirubin Neg (Negative) Urine Urobilinogen 2.0 (<2.0) mg/dL Ur Leukocyte Esterase Neg (Negative) Urine WBC (Auto) 2.0 (0.0-6.0) /HPF Urine RBC (Auto) 3.0 (0.0-6.0) /HPF Urine Mucus Few /HPF Urine for gonorrhea and chlamydia pending - Medical Decision Making ED course: This is a 51-year-old male who presented to the emergency for large garbage bag over her shoulder reporting that he just got out of assisted after a week and he is having penile discharge with urinary burning. Urinalysis normal without any abnormality and gonorrhea and chlamydia sent and pending. I waiting room to explain to patient that his urine was normal and gonorrhea and chlamydia is pending. Patient interrupted and asked me to feed him. I discussed with him that we have crackers and juice or water but we don't have food in the emergency room he became very agitated and shouted following language at me and told [place]. He then proceeded to pickup garbage bag and thorough over her shoulder while [place] and exit in the emergency room. I discussed patient that if he has penile discharge and he would like to be treated I can treat him. Patient said that they usually feed him when he comes to the emergency room and did not respond to offered to treat him. Patient gonorrhea and chlamydia sent. Patient eloped from emergency room he is in no acute distress. Critical care attestation.: If time is entered above; I have spent that time in minutes in the direct care of this critically ill patient, excluding procedure time. ED Disposition Clinical Impression: Dysuria, Normal urine exam, History of discharge from penis Disposition: Z-07 ELOPED Is pt being admited?: No Does the pt Need Aspirin: No Condition: Stable
== END 2017-04-28 05:07 | disposition left against medical advice (07) ==
LOC: ED 01:53
DX: R30.0 Dysuria (principal); F17.200 Nicotine dependence, unspecified, uncomplicated; F12.10 Cannabis abuse, uncomplicated; E11.9 Type 2 diabetes mellitus without complications; K21.9 Gastro-esophageal reflux disease without esophagitis
CPT/HCPCS: 81001; 87591; 99283

== ENCOUNTER 2017-04-30 03:11 | Emergency (ER) | payer OTHER ==
[2017-04-30 03:30] VITALS: BP 124/83
[2017-04-30 07:21] LABS: Basophils % (Auto) 0.6 % (0.0-1.8); Hematocrit 45.8 % (35.5-45.6); Hemoglobin 15.7 gm/dl (11.8-15.2); Mean Corpuscular HGB Conc 34 % (32-34); Mean Corpuscular Hemoglobin 33 pg (28-32); Mean Corpuscular Volume 96 fl (84-94); Platelet Count 250 K/mm3 (140-440); Red Blood Count 4.79 M/mm3 (3.65-5.03); White Blood Count 6.1 K/mm3 (4.5-11.0)
[2017-04-30 07:32] LABS: Anion Gap 16 mmol/L; BUN/Creatinine Ratio 18; Blood Urea Nitrogen 14 mg/dL (9-20); Calcium 8.7 mg/dL (8.4-10.2); Carbon Dioxide 27 mmol/L (22-30); Chloride 101.7 mmol/L (98-107); Glucose 124 mg/dL (75-100); Potassium 3.8 mmol/L (3.6-5.0); Sodium 141 mmol/L (137-145)
== END 2017-04-30 10:00 | disposition left against medical advice (07) ==
LOC: ED 03:11
DX: H57.8 Other specified disorders of eye and adnexa (principal); Z53.21 Procedure and treatment not carried out due to patient leaving prior to being seen by health care provider
CPT/HCPCS: 36415; 80048; 85025; G0480; 80320

== ENCOUNTER 2017-05-07 04:54 | Emergency (ER) | payer OTHER ==
[2017-05-07 05:06] VITALS: BP 134/75
[2017-05-07 06:08] LABS: Bacteria,Urine 2+ /HPF (Negative); Bilirubin,Urine NEG (Negative); Blood,Urine NEG (Negative); Ketones,Urine NEG (Negative); Leukocyte Esterase,Urine TR (Negative); Mucus,Urine FEW /HPF; Nitrite,Urine NEG (Negative); Protein,Urine <15 mg/dL mg/dL (Negative); WBC,Urine < 1.0 /HPF (0.0-6.0)
[2017-05-07] MEDS ORDERED: LEVAQUIN PO ONE (07:37)
--- NOTE | 2017-05-07 07:37 | Emergency Department Report ---
ED Male HPI - General Chief complaint: Urogenital-Male Stated complaint: BURNING WITH URINATION Time Seen by Provider: 05/07/17 07:26 Source: patient Mode of arrival: Ambulatory Limitations: No Limitations - History of Present Illness Initial comments: He reports that he thinks he might have a bladder infection reporting urinary burning. Denies any fever or chills. Denies any nausea or vomiting. Patient states symptoms started one month ago. Denies any back pain. No over-the- counter medication taken. Pain is only urinating. Patient reported he has pelvic cramping and on and off. 6 out of 10. He is not having any cramping at present per patient. MD Complaint: dysuria Onset/Timin -: month(s) Location: abdomen (pelvic cramping on/off. none now) Severity: moderate Severity scale (0 -10): 6 Quality: other (cramping) Consistency: intermittent Improves with: urination Worsens with: none dysuria. denies: discharge, swelling, mass, rash, urinary retention, blood in urine, fever, nausea/vomiting, incontinence - Related Data Sexually active: No Previous Rx's Medication Instructions Recorded Last Taken Type HYDROcodone/APAP 7.5-325 [[place] 1 each PO Q6HR PRN #20 tablet 05/02/13 Unknown Rx 7.5/325 mg] Ibuprofen [Motrin 800 MG tab] 800 mg PO Q8HR PRN #30 tablet 05/22/16 Unknown Rx methOCARBAMOL [Robaxin TAB] 500 mg PO BID #20 tab 05/22/16 Unknown Rx Azithromycin [Zithromax TAB] 500 mg PO QDAY #5 tablet 01/23/17 Unknown Rx Tamsulosin [Flomax] 0.4 mg PO QDAY #14 cap 01/23/17 Unknown Rx guaiFENesin [Robitussin] 200 mg PO Q6HR #20 tablet 01/23/17 Unknown Rx carBAMazepine [TEGretol] 100 mg PO BID #60 tablet 04/08/17 Unknown Rx Ciprofloxacin HCl [Ciprofloxacin 500 mg PO Q12H 10 Days #20 tab 05/07/17 Unknown Rx TAB] Allergies Allergy/AdvReac Type Severity Reaction Status Date / Time No Known Allergies Allergy Unverified 05/02/13 16:56 ED Review of Systems ROS: Stated complaint: BURNING WITH URINATION Other details as noted in HPI Comment: All other systems reviewed and negative Constitutional: no symptoms reported Respiratory: no symptoms reported Cardiovascular: denies: chest pain, palpitations, dyspnea on exertion, orthopnea , edema, syncope, paroxysmal nocturnal dyspnea Gastrointestinal: abdominal pain. denies: nausea, vomiting, diarrhea, constipation, hematemesis, melena, hematochezia Genitourinary: dysuria. denies: urgency, frequency, hematuria, discharge, testicular pain, testicular mass Musculoskeletal: denies: back pain, joint swelling, arthralgia, myalgia Skin: denies: rash Neurological: denies: headache, numbness, paresthesias, abnormal gait ED Past Medical Hx - Past Medical History Previous Medical History?: Yes Hx Diabetes: Yes Hx GERD: Yes Hx Psychiatric Treatment: Yes (schizophrenia) - Surgical History Past Surgical History?: Yes Additional Surgical History: Head, ear, knee - Family History Family history: hypertension - Social History Smoking Status: Current Every Day Smoker Substance Use Type: None - Medications Home Medications: Home Medications Medication Instructions Recorded Confirmed Last Taken Type HYDROcodone/APAP 7.5-325 [[place] 1 each PO Q6HR PRN #20 tablet 05/02/13 04/07/17 Unknown Rx 7.5/325 mg] Ibuprofen [Motrin 800 MG tab] 800 mg PO Q8HR PRN #30 tablet 05/22/16 04/07/17 Unknown Rx methOCARBAMOL [Robaxin TAB] 500 mg PO BID #20 tab 05/22/16 04/07/17 Unknown Rx Azithromycin [Zithromax TAB] 500 mg PO QDAY #5 tablet 01/23/17 04/07/17 Unknown Rx Tamsulosin [Flomax] 0.4 mg PO QDAY #14 cap 01/23/17 04/07/17 Unknown Rx guaiFENesin [Robitussin] 200 mg PO Q6HR #20 tablet 01/23/17 04/07/17 Unknown Rx carBAMazepine [TEGretol] 100 mg PO BID #60 tablet 04/08/17 Unknown Rx Ciprofloxacin HCl [Ciprofloxacin 500 mg PO Q12H 10 Days #20 tab 05/07/17 Unknown Rx TAB] ED Physical Exam - General Limitations: No Limitations General appearance: alert, in no apparent distress - Head Head exam: Present: atraumatic, normocephalic, normal inspection - Eye Eye exam: Present: normal appearance, PERRL, EOMI Pupils: Present: normal accommodation - ENT ENT exam: Present: normal exam, normal orophraynx, mucous membranes moist, TM's normal bilaterally - Neck Neck exam: Present: normal inspection, full ROM. Absent: tenderness, meningismus, lymphadenopathy, thyromegaly - Respiratory Respiratory exam: Present: normal lung sounds bilaterally. Absent: respiratory distress, chest wall tenderness - Cardiovascular Cardiovascular Exam: Present: regular rate, normal rhythm, normal heart sounds. Absent: systolic murmur, diastolic murmur - GI/Abdominal GI/Abdominal exam: Present: soft, normal bowel sounds. Absent: distended, tenderness, guarding, rebound, rigid, organomegaly, mass, bruit, pulsatile mass , hernia - Extremities Exam Extremities exam: Present: normal inspection, full ROM, normal capillary refill , other (clubbing, cyanosis or edema. +2 pulses to all extremities). Absent: tenderness, pedal edema, joint swelling, calf tenderness - Back Exam Back exam: Present: normal inspection, full ROM, other (Ambulates without any difficulties). Absent: tenderness, CVA tenderness (R), CVA tenderness (L), muscle spasm, paraspinal tenderness, vertebral tenderness, rash noted - Neurological Exam Neurological exam: Present: alert, oriented X3, normal gait, reflexes normal. Absent: motor sensory deficit - Psychiatric Psychiatric exam: Present: normal affect, normal mood - Skin Skin exam: Present: warm, dry, intact, normal color. Absent: rash ED Course Vital Signs 05/07/17 04:59 Temperature 97.5 F L Pulse Rate 82 Respiratory 17 Rate Blood Pressure 134/75 O2 Sat by Pulse 97 Oximetry - Reevaluation(s) Reevaluation #1: 05/07/17 07:57 Patient stable throughout ED course. he was given his first dose of antibiotic for urinary tract infection. Patient given Levaquin 750 mg by mouth and emergency room along with by mouth challenge. Tolerated juice well. ED Medical Decision Making - Lab Data Lab Results 05/07/17 Range/Units 05:38 Urine Color Yellow (Yellow) Urine Turbidity Turbid (Clear) Urine pH 7.0 (5.0-7.0) Ur Specific [place] 1.017 (1.003-1.030) Urine Protein <15 mg/dl (Negative) mg/dL Urine Glucose (UA) Neg (Negative) mg/dL Urine Ketones Neg (Negative) mg/dL Urine Blood Neg (Negative) Urine Nitrite Neg (Negative) Urine Bilirubin Neg (Negative) Urine Urobilinogen 2.0 (<2.0) mg/dL Ur Leukocyte Esterase Tr (Negative) Urine WBC (Auto) < 1.0 (0.0-6.0) /HPF Urine RBC (Auto) 1.0 (0.0-6.0) /HPF Urine Bacteria (Auto) 2+ (Negative) /HPF Urine Mucus Few /HPF Urine culrture sent - Medical Decision Making ED Course: Patient here reports abdominal cramps on/off forn 1 month. Reports urinary burning. Patient found to have Acute cystitis. Patient was given Levaquin 750 mg by mouth emergency room to cover urinary tract infection. Patient also able to tolerate liquids. Abdominal exam was normal. I discuss diagnosis and treatment plan the patient and told him I will put him on antibiotic called ciprofloxacin which is freely at [facility] and he can start that in the morning. He was undescended discharge instructions and treatment plan and discharged from emergency room in stable condition. Urine culture sent and pending. Critical care attestation.: If time is entered above; I have spent that time in minutes in the direct care of this critically ill patient, excluding procedure time. ED Disposition Clinical Impression: Acute cystitis without hematuria, Abdominal cramps Disposition: DC-01 TO HOME OR SELFCARE Is pt being admited?: No Does the pt Need Aspirin: No Condition: Stable Instructions: Dysuria (ED), Urinary Tract Infection in Men (ED) Additional Instructions: Take antibiotic as prescribed please increase her fluid intake. Please follow up with your primary care physician as instructed and if you do not have one you can follow-up at [facility] Prescriptions: Ciprofloxacin HCl [Ciprofloxacin TAB] 500 mg PO Q12H 10 Days #20 tab Referrals: PRIMARY CARE [Primary Care Provider] - 05/09/17
== END 2017-05-07 08:16 | disposition home or self-care (01) ==
LOC: ED 04:54
DX: N30.00 Acute cystitis without hematuria (principal); R10.9 Unspecified abdominal pain; F17.200 Nicotine dependence, unspecified, uncomplicated; E11.9 Type 2 diabetes mellitus without complications; K21.9 Gastro-esophageal reflux disease without esophagitis; F20.9 Schizophrenia, unspecified
CPT/HCPCS: 81001; 87086; 99283

== ENCOUNTER 2017-05-08 03:55 | Emergency (ER) | payer OTHER ==
[2017-05-08 05:05] VITALS: BP 136/83
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
== END 2017-05-08 10:15 | disposition home or self-care (01) ==
LOC: ED 03:55
DX: N30.00 Acute cystitis without hematuria (principal); E11.9 Type 2 diabetes mellitus without complications; K21.9 Gastro-esophageal reflux disease without esophagitis; F17.200 Nicotine dependence, unspecified, uncomplicated
CPT/HCPCS: 99282

== ENCOUNTER 2017-05-15 04:26 | Emergency (ER) | payer OTHER ==
[2017-05-15 05:30] VITALS: BP 142/82
[2017-05-15] MEDS ORDERED: TETRACAINE 0.5% OU PRN (08:06)
[2017-05-15] MEDS ORDERED: FUL-GLO OP ONE (08:06)
--- NOTE | 2017-05-15 08:20 | Emergency Department Report ---
Eye Injury/Foreign Body - HPI Duration: 2 Days Eye Location: Right Severity: None Eye Symptoms: Eye Pain: Yes, Blurred Vision: No, Eye Redness: Yes, Grinding/ Hammering Metal: No, Used Eye Protection: No, Contact Lens Use: No, Recalls Injury: No, Photophobia: No Other History: This is a 51-year-old male nontoxic, well nourished in appearance , no acute signs of distress presents to the ED with c/o of right eye pain, clear drainage, and redness 2 days. Patient stated he felt like something was in his eyes and started to rub and then developed this pain. Patient denies any blurred vision, visual changes, headache, stiff neck, chest pain, short of breath, numbness, tingling, abdominal pain. Patient denies any allergies. Past medical history includes diabetes and GERD. ED Review of Systems ROS: Stated complaint: EYE PAIN Other details as noted in HPI Constitutional: denies: chills, fever Eyes: eye pain. denies: eye discharge, vision change ENT: denies: ear pain, throat pain Respiratory: denies: cough, shortness of breath, wheezing Cardiovascular: denies: chest pain, palpitations Endocrine: no symptoms reported Gastrointestinal: denies: abdominal pain, nausea, diarrhea Genitourinary: denies: urgency, dysuria Musculoskeletal: denies: back pain, joint swelling, arthralgia Skin: denies: rash, lesions Neurological: denies: headache, weakness, paresthesias Psychiatric: denies: anxiety, depression Hematological/Lymphatic: denies: easy bleeding, easy bruising ED Past Medical Hx - Past Medical History Hx Diabetes: Yes Hx GERD: Yes Hx Psychiatric Treatment: Yes (schizophrenia) - Surgical History Additional Surgical History: Head, ear, knee - Social History Smoking Status: Current Every Day Smoker Substance Use Type: None - Medications Home Medications: Home Medications Medication Instructions Recorded Confirmed Last Taken Type HYDROcodone/APAP 7.5-325 [[place] 1 each PO Q6HR PRN #20 tablet 05/02/13 04/07/17 Unknown Rx 7.5/325 mg] Ibuprofen [Motrin 800 MG tab] 800 mg PO Q8HR PRN #30 tablet 05/22/16 04/07/17 Unknown Rx methOCARBAMOL [Robaxin TAB] 500 mg PO BID #20 tab 05/22/16 04/07/17 Unknown Rx Azithromycin [Zithromax TAB] 500 mg PO QDAY #5 tablet 01/23/17 04/07/17 Unknown Rx Tamsulosin [Flomax] 0.4 mg PO QDAY #14 cap 01/23/17 04/07/17 Unknown Rx guaiFENesin [Robitussin] 200 mg PO Q6HR #20 tablet 01/23/17 04/07/17 Unknown Rx carBAMazepine [TEGretol] 100 mg PO BID #60 tablet 04/08/17 Unknown Rx Ciprofloxacin HCl [Ciprofloxacin 500 mg PO Q12H 10 Days #20 tab 05/08/17 Unknown Rx TAB] Ciprofloxacin 0.3% (Nf) 5 drops OD Q8H #1 drops 05/15/17 Unknown Rx [Ciprofloxacin OPTH] Eye Injury Exam - Exam General: Vital signs noted. No distress. Alert and acting appropriately. GENERAL: The patient is a well-developed, well-nourished female in no apparent distress. Patient is alert and acting appropriately for age. Alert and oriented 3, no apparent distress, normal gait, atraumatic. HEENT: Head is normocephalic and atraumatic. PERRL, Extraocular muscles are intact. Pupils are equal, round, and reactive to light and accommodation. Under Donnelly lamp, I used fluorescein and tetracaine to examine cornea for corneal abrasion or foreign body, positive for slight coronary abrasion and no foreign body noted upon exam. Jim-Pen 13 of right eye. Nares appeared normal. Mouth is well hydrated and without lesions. Mucous membranes are moist. Posterior pharynx clear of any exudate or lesions. Mouth is well hydrated and without lesions. Tonsils not erythematous or swollen. Uvula midline. Tongue elevated. Mucous members are moist. Posterior pharynx clear, no exudate or lesions. Patent airways. NECK: Supple. No carotid bruits. No lymphadenopathy or thyromegaly.nontender. No meningitic signs are noted. LUNGS: Clear to auscultation. Non labor breathing. No intercostal retractions. Symmetrical with respiration, no wheezing, no rales, or crackles. HEART: Regular rate and rhythm without murmur, rubs or gallops. No reproducible. S1, S2 present, regular rate and rhythm without murmur, no rubs, no gallops. ABDOMEN: Soft, nontender, and nondistended. Positive bowel sounds. No hepatosplenomegaly was noted. No guarding or rebound tenderness, negative epigastric bruit. Negative psoas sign, negative chow sign, negative McBurneys sign EXTREMITIES: Without any cyanosis, clubbing, rash, lesions or edema. Peripheral pulses intact. Capillary refill less than 2 seconds. Full range of motion bilaterally. NEUROLOGIC: Cranial nerves II through XII are grossly intact. Alert and oriented x 3. Normal gait. Symmetrical strength and sensation. Reflexes 2+ throughout. Cerebellar testing normal. GCS score of 15. PSYCHIATRIC: Normal affect with no suicidal or homicidal ideations. - Visual Acuity Left Vision Acuity Degree: 20/40 (bilateral) Right Vision Acuity Degree: 20/40 Eye Exam: Neither Injection, Neither Chemosis, Neither Abnormal Pupil, Neither EOMI, Neither Eye Foreign Body, Neither Lid Foreign Body, Neither Mucous Discharge, Neither Purulent Discharge, Neither Fluorescein Uptake, Neither Fluorescein Uptake (slit lamp), Neither Cell/Flare (slit lamp), Neither Corneal Edema, Neither Photophobia Exam: Under Donnelly lamp, I used fluorescein and tetracaine to examine cornea for corneal abrasion or foreign body, positive for slight coronary abrasion with no foreign body noted upon exam. Jim-Pen 13 of right eye Bilateral Vision Acuity Degree: 20/40 ED Course Vital Signs 05/15/17 05:26 Temperature 97.6 F Pulse Rate 71 Respiratory 16 Rate Blood Pressure 142/82 O2 Sat by Pulse 100 Oximetry - Reevaluation(s) Reevaluation #1: 05/15/17 08:20 Patient is speaking in full sentences with no signs of distress noted. ED Medical Decision Making - Medical Decision Making This is a 51-year-old male that presents with corneal abrasion of the right eye. Patient stable and was examined by me. There is normal visual acuity and normal EOMI. His lab indicates a corneal abrasion right eye. No foreign body noted. Jim-Pen was 13. PERRLA. Patient discharged with ciprofloxacin ophthalmic. Patient was instructed Follow-up with a television maintenance man in 24 hours or if symptoms worsen and continue return to emergency room as soon as possible. At time time of discharge, the patient does not seem toxic or ill in appearance. No acute signs of distress noted. Patient agrees to discharge treatment plan of care. No further questions noted by the patient. Critical care attestation.: If time is entered above; I have spent that time in minutes in the direct care of this critically ill patient, excluding procedure time. ED Disposition Clinical Impression: Corneal abrasion Qualifiers: Encounter type: initial encounter Laterality: right Qualified Code(s): S05.01XA - Injury of conjunctiva and corneal abrasion without foreign body, right eye, initial encounter Disposition: TO HOME OR SELFCARE Is pt being admited?: No Does the pt Need Aspirin: No Condition: Stable Instructions: Corneal Abrasion (ED), Ciprofloxacin (Into the eye) Additional Instructions: Follow-up with a television maintenance man in 24 hours or if symptoms worsen and continue return to emergency room as soon as possible. Prescriptions: Ciprofloxacin 0.3% (Nf) [Ciprofloxacin OPTH] 5 drops OD Q8H #1 drops Referrals: PRIMARY CARE, [Primary Care Provider] - 3-5 Days JASMIN CARDONA MD [Staff Physician] - 3-5 Days [facility] [Outside] - 3-5 Days [facility] [Outside] - 3-5 Days SHRUTHI MOLINA MD [Staff Physician] - 24 Hours
== END 2017-05-15 09:06 | disposition home or self-care (01) ==
LOC: ED 04:26
DX: S05.01XA Injury of conjunctiva and corneal abrasion without foreign body, right eye, initial encounter (principal); E11.9 Type 2 diabetes mellitus without complications; K21.9 Gastro-esophageal reflux disease without esophagitis; F17.200 Nicotine dependence, unspecified, uncomplicated; X58.XXXA Exposure to other specified factors, initial encounter; Y93.89 Activity, other specified; Y99.8 Other external cause status; Y92.89 Other specified places as the place of occurrence of the external cause
CPT/HCPCS: 99283

== ENCOUNTER 2017-05-27 04:22 | Emergency (ER) | payer SELFPAY ==
[2017-05-27 04:43] VITALS: BP 165/86
--- NOTE | 2017-05-27 09:05 | Emergency Department Report ---
ED General Adult HPI - General Chief complaint: Extremity Problem,Nontraumatic Stated complaint: BODY PAIN Time Seen by Provider: 05/27/17 07:14 Source: patient Mode of arrival: Ambulatory Limitations: No Limitations - History of Present Illness Initial comments: This is a 51-year-old male nontoxic, well nourished in appearance, no acute signs of distress presents to the ED with c/o of generalized body pain and wanting to sleep and eat. Patient stated he is homeless and wants to get and sleep. Patient stated has body pain because he was walking a lot. Patient denies any chest pain, shortness of breathe, fever, chills, headache, nausea, vomiting, stiff neck, abdominal pain, back pain. Patient denies any drug allergies. PMH includes DM, GERD, and psych. Severity scale (0 -10): 3 Quality: aching Consistency: constant Improves with: none Worsens with: none Associated Symptoms: denies other symptoms. denies: confusion, chest pain, cough, diaphoresis, fever/chills, headaches, loss of appetite, malaise, nausea/ vomiting, rash, seizure, shortness of breath, syncope, weakness Treatments Prior to Arrival: none - Related Data Previous Rx's Medication Instructions Recorded Last Taken Type HYDROcodone/APAP 7.5-325 [[place] 1 each PO Q6HR PRN #20 tablet 05/02/13 Unknown Rx 7.5/325 mg] Ibuprofen [Motrin 800 MG tab] 800 mg PO Q8HR PRN #30 tablet 05/22/16 Unknown Rx methOCARBAMOL [Robaxin TAB] 500 mg PO BID #20 tab 05/22/16 Unknown Rx Azithromycin [Zithromax TAB] 500 mg PO QDAY #5 tablet 01/23/17 Unknown Rx Tamsulosin [Flomax] 0.4 mg PO QDAY #14 cap 01/23/17 Unknown Rx guaiFENesin [Robitussin] 200 mg PO Q6HR #20 tablet 01/23/17 Unknown Rx carBAMazepine [TEGretol] 100 mg PO BID #60 tablet 04/08/17 Unknown Rx Ciprofloxacin HCl [Ciprofloxacin 500 mg PO Q12H 10 Days #20 tab 05/08/17 Unknown Rx TAB] Ciprofloxacin 0.3% (Nf) 5 drops OD Q8H #1 drops 05/15/17 Unknown Rx [Ciprofloxacin OPTH] Ibuprofen [Motrin] 600 mg PO Q8H PRN #30 tablet 05/27/17 Unknown Rx Allergies Allergy/AdvReac Type Severity Reaction Status Date / Time No Known Allergies Allergy Unverified 05/02/13 16:56 ED Review of Systems ROS: Stated complaint: BODY PAIN Other details as noted in HPI Constitutional: denies: chills, fever Eyes: denies: eye pain, eye discharge, vision change ENT: denies: ear pain, throat pain Respiratory: denies: cough, shortness of breath, wheezing Cardiovascular: denies: chest pain, palpitations Endocrine: no symptoms reported Gastrointestinal: denies: abdominal pain, nausea, diarrhea Genitourinary: denies: urgency, dysuria Musculoskeletal: denies: back pain, joint swelling, arthralgia Skin: denies: rash, lesions Neurological: denies: headache, weakness, paresthesias Psychiatric: denies: anxiety, depression Hematological/Lymphatic: denies: easy bleeding, easy bruising ED Past Medical Hx - Past Medical History Previous Medical History?: Yes Hx Diabetes: Yes Hx GERD: Yes Hx Psychiatric Treatment: Yes (schizophrenia) - Surgical History Past Surgical History?: Yes Additional Surgical History: Head, ear, knee - Social History Smoking Status: Current Every Day Smoker Substance Use Type: Alcohol - Medications Home Medications: Home Medications Medication Instructions Recorded Confirmed Last Taken Type HYDROcodone/APAP 7.5-325 [[place] 1 each PO Q6HR PRN #20 tablet 05/02/13 04/07/17 Unknown Rx 7.5/325 mg] Ibuprofen [Motrin 800 MG tab] 800 mg PO Q8HR PRN #30 tablet 05/22/16 04/07/17 Unknown Rx methOCARBAMOL [Robaxin TAB] 500 mg PO BID #20 tab 05/22/16 04/07/17 Unknown Rx Azithromycin [Zithromax TAB] 500 mg PO QDAY #5 tablet 01/23/17 04/07/17 Unknown Rx Tamsulosin [Flomax] 0.4 mg PO QDAY #14 cap 01/23/17 04/07/17 Unknown Rx guaiFENesin [Robitussin] 200 mg PO Q6HR #20 tablet 01/23/17 04/07/17 Unknown Rx carBAMazepine [TEGretol] 100 mg PO BID #60 tablet 04/08/17 Unknown Rx Ciprofloxacin HCl [Ciprofloxacin 500 mg PO Q12H 10 Days #20 tab 12/26/17 Unknown Rx TAB] Ciprofloxacin 0.3% (Nf) 5 drops OD Q8H #1 drops 05/15/17 Unknown Rx [Ciprofloxacin OPTH] Ibuprofen [Motrin] 600 mg PO Q8H PRN #30 tablet 05/27/17 Unknown Rx ED Physical Exam - General Limitations: No Limitations General appearance: alert, in no apparent distress - Head Head exam: Present: atraumatic, normocephalic, normal inspection - Eye Eye exam: Present: normal appearance, PERRL, EOMI. Absent: scleral icterus, conjunctival injection, nystagmus, periorbital swelling, periorbital tenderness Pupils: Present: normal accommodation - ENT ENT exam: Present: normal exam, normal orophraynx, mucous membranes moist, TM's normal bilaterally, normal external ear exam - Neck Neck exam: Present: normal inspection, full ROM. Absent: tenderness, meningismus, lymphadenopathy, thyromegaly - Respiratory Respiratory exam: Present: normal lung sounds bilaterally. Absent: respiratory distress, wheezes, rales, rhonchi, stridor, chest wall tenderness, accessory muscle use, decreased breath sounds, prolonged expiratory - Cardiovascular Cardiovascular Exam: Present: regular rate, normal rhythm, normal heart sounds. Absent: bradycardia, tachycardia, irregular rhythm, systolic murmur, diastolic murmur, rubs, gallop - GI/Abdominal GI/Abdominal exam: Present: soft, normal bowel sounds. Absent: distended, tenderness, guarding, rebound, rigid, diminished bowel sounds - Expanded GI/Abdominal Exam Expanded GI/Abdominal exam: Absent: psoas sign, obturator sign, heel tap sign, Cuello's sign, Rovsing's sign, tenderness at Mcburney's Point, ascites - Rectal Rectal exam: Present: deferred - Extremities Exam Extremities exam: Present: normal inspection, full ROM, normal capillary refill. Absent: tenderness, pedal edema, joint swelling, calf tenderness - Back Exam Back exam: Present: normal inspection, full ROM. Absent: tenderness, CVA tenderness (R), CVA tenderness (L), muscle spasm, paraspinal tenderness, vertebral tenderness, rash noted - Neurological Exam Neurological exam: Present: alert, oriented X3, CN II-XII intact, normal gait, reflexes normal - Psychiatric Psychiatric exam: Present: normal affect, normal mood - Skin Skin exam: Present: warm, dry, intact, normal color. Absent: rash ED Course Vital Signs 05/27/17 04:31 Temperature 98.6 F Pulse Rate 71 Respiratory 17 Rate Blood Pressure 165/86 O2 Sat by Pulse 98 Oximetry - Reevaluation(s) Reevaluation #1: 05/27/17 09:16 Patient is speaking in full sentences with no signs of distress noted. ED Medical Decision Making - Lab Data Result diagrams: 05/27/17 09:25 05/27/17 09:25 - Medical Decision Making This is a 51-year-old male that presents with generalized body aches. Patient is stable and was examine by me. Patient has been requesting for food and sleep. Patient recevied food in the ED, CBC, BMP, and UA obtained within normal limits. Upon exam, every system is within normal limits. top and trim worker has been consulted about patient and stated will come and speak with patient. Patient was instructed to Follow-up with a primary care doctor in 3-5 days or if symptoms worsen and continue return to emergency room as soon as possible. At time time of discharge, the patient does not seem toxic or ill in appearance. No acute signs of distress noted. Patient agrees to discharge treatment plan of care. No further questions noted by the patient. Critical care attestation.: If time is entered above; I have spent that time in minutes in the direct care of this critically ill patient, excluding procedure time. ED Disposition Clinical Impression: Total body pain Disposition: DC-01 TO HOME OR SELFCARE Is pt being admited?: No Does the pt Need Aspirin: No Condition: Stable Additional Instructions: Follow-up with a primary care doctor in 3-5 days or if symptoms worsen and continue return to emergency room as soon as possible. Prescriptions: Ibuprofen [Motrin] 600 mg PO Q8H PRN #30 tablet PRN Reason: Pain Referrals: NATALYA WEBBER MD [Primary Care Provider] - 3-5 Days JASMIN CARDONA MD [Staff Physician] - 3-[address] [facility] [Outside] - 3-5 Days [facility] [Outside] - 3-5 Days
[2017-05-27 09:41] LABS: Basophils # (Auto) 0.1 K/mm3 (0.0-0.1); Basophils % (Auto) 0.7 % (0.0-1.8); Eosinophils # (Auto) 0.2 K/mm3 (0.0-0.4); Eosinophils % (Auto) 2.8 % (0.0-4.3); Hematocrit 46.2 % (35.5-45.6); Hemoglobin 15.7 gm/dl (11.8-15.2); Lymphocytes # (Auto) 1.6 K/mm3 (1.2-5.4); Lymphocytes % (Auto) 22.5 % (13.4-35.0); Mean Corpuscular HGB Conc 34 % (32-34); Mean Corpuscular Hemoglobin 32 pg (28-32); Mean Corpuscular Volume 95 fl (84-94); Monocytes # (Auto) 0.7 K/mm3 (0.0-0.8); Monocytes % (Auto) 9.7 % (0.0-7.3); Platelet Count 247 K/mm3 (140-440); Red Blood Count 4.85 M/mm3 (3.65-5.03)
[2017-05-27 09:48] LABS: Bilirubin,Urine NEG (Negative); Blood,Urine NEG (Negative); Color,Urine Yellow (Yellow); Mucus,Urine FEW /HPF; Nitrite,Urine NEG (Negative); Protein,Urine <15 mg/dL mg/dL (Negative); WBC,Urine < 1.0 /HPF (0.0-6.0)
[2017-05-27 09:54] LABS: BUN/Creatinine Ratio 21; Blood Urea Nitrogen 15 mg/dL (9-20); Calcium 9.1 mg/dL (8.4-10.2); Hemolysis Index 11
== END 2017-05-27 11:22 | disposition home or self-care (01) ==
LOC: ED 04:22
DX: M79.1 Myalgia (principal); Z59.0 Homelessness; E11.9 Type 2 diabetes mellitus without complications; K21.9 Gastro-esophageal reflux disease without esophagitis; F20.9 Schizophrenia, unspecified; F17.200 Nicotine dependence, unspecified, uncomplicated
CPT/HCPCS: 36415; 80048; 81001; 85025; 99283

== ENCOUNTER 2017-05-31 00:18 | Emergency (ER) | payer SELFPAY | END 2017-05-31 11:45 | disposition left against medical advice (07) | LOC: ED 00:18 | DX: Z53.21 Procedure and treatment not carried out due to patient leaving prior to being seen by health care provider (principal) ==

== ENCOUNTER 2017-06-01 06:31 | Emergency (ER) | payer SELFPAY ==
[2017-06-01 10:48] VITALS: BP 136/89
--- NOTE | 2017-06-01 12:11 | Emergency Department Report ---
ED Extremity Problem HPI - General Chief complaint: Extremity Problem,Nontraumatic Stated complaint: FOOT PAIN Time Seen by Provider: 06/01/17 12:09 Source: patient Mode of arrival: Ambulatory Limitations: No Limitations - History of Present Illness Initial comments: 52-year-old male past medical history schizophrenia, chronic foot pain presents with complaint of chronic foot pain and pain near his bunions. Patient states he is on his feet for prolonged periods of time because he is homeless and has not been taking any pain medicine and has not seen a foot doctor. Patient is awake and alert and oriented 3. Slightly disheveled appearance and body odor. Denies alcohol or drug use. States that his bunions have been aching him for several weeks bilaterally worse on right than left. Denies any fevers chills nausea vomiting. Denies any direct trauma to feet. States he stands for several hours at a time. MD Complaint: extremity pain Location: left, right, lower extremity, bilateral lower extremity History of Same: Yes Severity scale (0 -10): 5 Quality: aching Consistency: constant Improves with: nothing Worsens with: weight bearing - Related Data Previous Rx's Medication Instructions Recorded Last Taken Type HYDROcodone/APAP 7.5-325 [[place] 1 each PO Q6HR PRN #20 tablet 05/02/13 Unknown Rx 7.5/325 mg] Ibuprofen [Motrin 800 MG tab] 800 mg PO Q8HR PRN #30 tablet 05/22/16 Unknown Rx methOCARBAMOL [Robaxin TAB] 500 mg PO BID #20 tab 05/22/16 Unknown Rx Azithromycin [Zithromax TAB] 500 mg PO QDAY #5 tablet 01/23/17 Unknown Rx Tamsulosin [Flomax] 0.4 mg PO QDAY #14 cap 01/23/17 Unknown Rx guaiFENesin [Robitussin] 200 mg PO Q6HR #20 tablet 01/23/17 Unknown Rx carBAMazepine [TEGretol] 100 mg PO BID #60 tablet 04/08/17 Unknown Rx Ciprofloxacin HCl [Ciprofloxacin 500 mg PO Q12H 10 Days #20 tab 05/08/17 Unknown Rx TAB] Ciprofloxacin 0.3% (Nf) 5 drops OD Q8H #1 drops 05/15/17 Unknown Rx [Ciprofloxacin OPTH] Ibuprofen [Motrin] 600 mg PO Q8H PRN #30 tablet 05/27/17 Unknown Rx Menthol [[place] Medicated Foot] 1 applicatio TP BID #1 powder 06/01/17 Unknown Rx Naproxen 500 mg PO BID PRN #30 tablet 06/01/17 Unknown Rx Allergies Allergy/AdvReac Type Severity Reaction Status Date / Time No Known Allergies Allergy Unverified 05/02/13 16:56 ED Review of Systems ROS: Stated complaint: FOOT PAIN Other details as noted in HPI Constitutional: denies: chills, fever Eyes: denies: eye pain, eye discharge, vision change ENT: denies: ear pain, throat pain Respiratory: denies: cough, shortness of breath, wheezing Cardiovascular: denies: chest pain, palpitations Endocrine: no symptoms reported Gastrointestinal: denies: abdominal pain, nausea, diarrhea Genitourinary: denies: urgency, dysuria Musculoskeletal: other (chronic foot pain b/l, bunions). denies: back pain, joint swelling, arthralgia Skin: denies: rash, lesions Neurological: denies: headache, weakness, paresthesias Psychiatric: denies: anxiety, depression Hematological/Lymphatic: denies: easy bleeding, easy bruising ED Past Medical Hx - Past Medical History Hx Diabetes: Yes Hx GERD: Yes Hx Psychiatric Treatment: Yes (schizophrenia) - Surgical History Additional Surgical History: Head, ear, knee - Social History Smoking Status: Current Every Day Smoker Substance Use Type: None - Medications Home Medications: Home Medications Medication Instructions Recorded Confirmed Last Taken Type HYDROcodone/APAP 7.5-325 [[place] 1 each PO Q6HR PRN #20 tablet 05/02/13 04/07/17 Unknown Rx 7.5/325 mg] Ibuprofen [Motrin 800 MG tab] 800 mg PO Q8HR PRN #30 tablet 05/22/16 04/07/17 Unknown Rx methOCARBAMOL [Robaxin TAB] 500 mg PO BID #20 tab 05/22/16 04/07/17 Unknown Rx Azithromycin [Zithromax TAB] 500 mg PO QDAY #5 tablet 01/23/17 04/07/17 Unknown Rx Tamsulosin [Flomax] 0.4 mg PO QDAY #14 cap 01/23/17 04/07/17 Unknown Rx guaiFENesin [Robitussin] 200 mg PO Q6HR #20 tablet 01/23/17 04/07/17 Unknown Rx carBAMazepine [TEGretol] 100 mg PO BID #60 tablet 04/08/17 Unknown Rx Ciprofloxacin HCl [Ciprofloxacin 500 mg PO Q12H 10 Days #20 tab 05/08/17 Unknown Rx TAB] Ciprofloxacin 0.3% (Nf) 5 drops OD Q8H #1 drops 05/15/17 Unknown Rx [Ciprofloxacin OPTH] Ibuprofen [Motrin] 600 mg PO Q8H PRN #30 tablet 05/27/17 Unknown Rx Menthol [[place] Medicated Foot] 1 applicatio TP BID #1 powder 06/01/17 Unknown Rx Naproxen 500 mg PO BID PRN #30 tablet 06/01/17 Unknown Rx ED Physical Exam - General Limitations: No Limitations General appearance: alert, in no apparent distress - Head Head exam: Present: atraumatic, normocephalic - Eye Eye exam: Present: normal appearance, PERRL, EOMI - ENT ENT exam: Present: mucous membranes moist - Neck Neck exam: Present: normal inspection - Respiratory Respiratory exam: Present: normal lung sounds bilaterally. Absent: respiratory distress - Cardiovascular Cardiovascular Exam: Present: regular rate, normal rhythm. Absent: systolic murmur, diastolic murmur, rubs, gallop - GI/Abdominal GI/Abdominal exam: Present: soft, normal bowel sounds - Rectal Rectal exam: Present: deferred - Extremities Exam Extremities exam: Present: normal inspection, full ROM, other (bilateral bunions and athlete's foot no signs of cellulitis no abscesses distal circulation intact without pedis and posterior tibial pulses intact bilaterally) - Back Exam Back exam: Present: normal inspection - Neurological Exam Neurological exam: Present: alert, oriented X3, CN II-XII intact, normal gait - Psychiatric Psychiatric exam: Present: normal affect, normal mood - Skin Skin exam: Present: warm, dry, intact, normal color. Absent: rash ED Course Vital Signs 06/01/17 10:44 Temperature 98.0 F Pulse Rate 69 Respiratory 16 Rate Blood Pressure 136/89 O2 Sat by Pulse 100 Oximetry ED Medical Decision Making - Medical Decision Making A/P: Bunions, athlete's foot 1-Tinactin spray, I advised patient on foot care, [place] powder 2-I advised patient to wear comfortable socks and foot were 3-follow-up with podiatry and primary care 4- no clinical signs of infection or vascular deficit bilaterally on extremities exam. Patient ambulatory without assistance. Critical care attestation.: If time is entered above; I have spent that time in minutes in the direct care of this critically ill patient, excluding procedure time. ED Disposition Clinical Impression: Bilateral bunions, Foot pain, bilateral Disposition: - TO HOME OR SELFCARE Is pt being admited?: No Does the pt Need Aspirin: No Condition: Undetermined Instructions: Bunion (ED) Prescriptions: Menthol [[place] Medicated Foot] 1 applicatio TP BID #1 powder Naproxen 500 mg PO BID PRN #30 tablet PRN Reason: Pain Referrals: REMINGTON RODRIGUEZ DPM [Staff Physician] - 3-5 Days [facility] [Outside] - 3-5 Days Time of Disposition: 13:12
[2017-06-01] MEDS ORDERED: TYLENOL #3 PO ONE (13:08)
== END 2017-06-01 13:12 | disposition home or self-care (01) ==
LOC: ED 06:31
DX: M21.612 Bunion of left foot (principal); M21.611 Bunion of right foot; E11.9 Type 2 diabetes mellitus without complications; K21.9 Gastro-esophageal reflux disease without esophagitis; F17.200 Nicotine dependence, unspecified, uncomplicated
CPT/HCPCS: 99282

== ENCOUNTER 2017-06-09 03:21 | Emergency (ER) | payer SELFPAY | END 2017-06-09 03:30 | disposition left against medical advice (07) | LOC: ED 03:21 | DX: M54.5 Low back pain (principal); Z53.21 Procedure and treatment not carried out due to patient leaving prior to being seen by health care provider ==

== ENCOUNTER 2017-06-15 01:50 | Emergency (ER) | payer SELFPAY | END 2017-06-15 02:35 | disposition left against medical advice (07) | LOC: ED 01:50 | DX: M54.9 Dorsalgia, unspecified (principal); Z53.21 Procedure and treatment not carried out due to patient leaving prior to being seen by health care provider ==

== ENCOUNTER 2017-06-21 06:01 | Emergency (ER) | payer SELFPAY | END 2017-06-21 07:15 | disposition left against medical advice (07) | LOC: ED 06:01 | DX: M79.643 Pain in unspecified hand (principal); Z53.21 Procedure and treatment not carried out due to patient leaving prior to being seen by health care provider ==

== ENCOUNTER 2017-06-22 05:53 | Emergency (ER) | payer MEDICARE ==
[2017-06-22 11:07] VITALS: BP 134/92
== END 2017-06-22 14:59 | disposition left against medical advice (07) ==
LOC: ED 05:53
DX: R20.0 Anesthesia of skin (principal); Z53.21 Procedure and treatment not carried out due to patient leaving prior to being seen by health care provider

== ENCOUNTER 2017-06-24 04:13 | Emergency (ER) | payer SELFPAY ==
[2017-06-24 06:49] VITALS: BP 140/99
[2017-06-24] MEDS ORDERED: MOTRIN PO ONE (10:10)
--- NOTE | 2017-06-24 10:18 | Emergency Department Report ---
Upper Extremity - HPI Chief Complaint: Extremity Injury, Upper Stated Complaint: Hand numbness & Tingling Time Seen by Provider: 06/24/17 09:21 Upper Extremity: Left Hand, Right Hand Occurred When: >5 Days Severity: mild Symptoms: No Pain with Movement, No Deformity, No Limited Range of Movement, No Numbness, No Weakness, No Swelling, No Bruising/Ecchymosis, No Laceration or Abrasion Other History: This is a 52-year-old male nontoxic, well nourished in appearance , no acute signs of distress presents to the ED with c/o of chronic intermittent bilateral hands tingling and pain. Patient stated this is what for many years but the last 3 weeks has increased. Patient denies any trauma to the hands. Denies any numbness, fever, chills, headache, stiff neck, back pain, chest pain, shortness of breath, mental pain. Patient denies any drug allergies or significant past medical history. ED Review of Systems ROS: Stated complaint: Hand numbness & Tingling Other details as noted in HPI Constitutional: denies: chills, fever Eyes: denies: eye pain, eye discharge, vision change ENT: denies: ear pain, throat pain Respiratory: denies: cough, shortness of breath, wheezing Cardiovascular: denies: chest pain, palpitations Endocrine: no symptoms reported Gastrointestinal: denies: abdominal pain, nausea, diarrhea Genitourinary: denies: urgency, dysuria Musculoskeletal: arthralgia. denies: back pain, joint swelling Skin: denies: rash, lesions Neurological: denies: headache, weakness, paresthesias Psychiatric: denies: anxiety, depression Hematological/Lymphatic: denies: easy bleeding, easy bruising ED Past Medical Hx - Past Medical History Hx Diabetes: Yes Hx GERD: Yes Hx Psychiatric Treatment: Yes (schizophrenia) - Surgical History Additional Surgical History: Head, ear, knee - Social History Smoking Status: Current Every Day Smoker - Medications Home Medications: Home Medications Medication Instructions Recorded Confirmed Last Taken Type HYDROcodone/APAP 7.5-325 [[place] 1 each PO Q6HR PRN #20 tablet 05/02/13 04/07/17 Unknown Rx 7.5/325 mg] Ibuprofen [Motrin 800 MG tab] 800 mg PO Q8HR PRN #30 tablet 05/22/16 04/07/17 Unknown Rx methOCARBAMOL [Robaxin TAB] 500 mg PO BID #20 tab 05/22/16 04/07/17 Unknown Rx Azithromycin [Zithromax TAB] 500 mg PO QDAY #5 tablet 01/23/17 04/07/17 Unknown Rx Tamsulosin [Flomax] 0.4 mg PO QDAY #14 cap 01/23/17 04/07/17 Unknown Rx guaiFENesin [Robitussin] 200 mg PO Q6HR #20 tablet 01/23/17 04/07/17 Unknown Rx carBAMazepine [TEGretol] 100 mg PO BID #60 tablet 04/08/17 Unknown Rx Ciprofloxacin HCl [Ciprofloxacin 500 mg PO Q12H 10 Days #20 tab 05/08/17 Unknown Rx TAB] Ciprofloxacin 0.3% (Nf) 5 drops OD Q8H #1 drops 05/15/17 Unknown Rx [Ciprofloxacin OPTH] Ibuprofen [Motrin] 600 mg PO Q8H PRN #30 tablet 05/27/17 Unknown Rx Menthol [[place] Medicated Foot] 1 applicatio TP BID #1 powder 06/01/17 Unknown Rx Naproxen 500 mg PO BID PRN #30 tablet 06/01/17 Unknown Rx Naproxen 500 mg PO Q8H PRN #30 tablet 06/24/17 Unknown Rx Upper Extremity Exam - Exam General: Vital signs noted. No distress. Alert and acting appropriately. GENERAL: The patient is a well-developed, well-nourished in no apparent distress. Patient is alert and acting appropriately for age. Alert and oriented 3, no apparent distress, normal gait, atraumatic. HEENT: Head is normocephalic and atraumatic. PERRL, Extraocular muscles are intact. Pupils are equal, round, and reactive to light and accommodation. Nares appeared normal. Mouth is well hydrated and without lesions. Mucous membranes are moist. Posterior pharynx clear of any exudate or lesions. Mouth is well hydrated and without lesions. Tonsils not erythematous or swollen. Uvula midline. Tongue elevated. Mucous members are moist. Posterior pharynx clear, no exudate or lesions. Patent airways. NECK: Supple. No carotid bruits. No lymphadenopathy or thyromegaly.nontender. No meningitic signs are noted. LUNGS: Clear to auscultation. Non labor breathing. No intercostal retractions. Symmetrical with respiration, no wheezing, no rales, or crackles. HEART: Regular rate and rhythm without murmur, rubs or gallops. No reproducible. S1, S2 present, regular rate and rhythm without murmur, no rubs, no gallops. ABDOMEN: Soft, nontender, and nondistended. Positive bowel sounds. No hepatosplenomegaly was noted. No guarding or rebound tenderness, negative epigastric bruit. Negative psoas sign, negative chow sign, negative McBurneys sign EXTREMITIES: Without any cyanosis, clubbing, rash, lesions or edema. Peripheral pulses intact. Capillary refill less than 2 seconds. Full range of motion bilaterally. NEUROLOGIC: Cranial nerves II through XII are grossly intact. Alert and oriented x 3. Normal gait. Symmetrical strength and sensation. Reflexes 2+ throughout. Cerebellar testing normal. GCS score of 15. PSYCHIATRIC: Normal affect with no suicidal or homicidal ideations. Head and Torso: No HEENT Abnormality, No Neck Tenderness, No Chest/Lungs Abnormality, No Abdominal Tenderness, No Back Tenderness Shoulder Exam: Yes Normal Range of Motion in Shoulder, No Shoulder Tenderness, No Clavicle Tenderness, No Shoulder Deformity, No AC Joint Tenderness Arm Exam: No Arm/Humerus Tenderness, No Arm Deformity Elbow: No Elbow Tenderness, No Normal Range of Motion in Elbow, No Elbow Deformity Forearm: No Forearm Tenderness, No Forearm Deformity, No Pain with Pronation, No Pain with Supination Wrist: Yes Normal ROM in Wrist, No Wrist Tenderness, No Wrist Deformity, No Snuffbox Tenderness, No Pain with Axial Thumb Compression Hand: Yes Normal ROM in Digit(s), No Hand Tenderness, No Hand Deformity, No Digit Tenderness, No Digit(s) Deformity, No Tendon Dysfunction CMS Exam: No Broken Skin, No Normal Distal Pulses, No Normal Capillary Refill, No Normal Distal Sensation ED Course Vital Signs 06/24/17 06:26 Temperature 97.8 F Pulse Rate 58 L Respiratory 20 Rate Blood Pressure 140/99 O2 Sat by Pulse 99 Oximetry - Reevaluation(s) Reevaluation #1: 06/24/17 10:15 Patient is speaking in full sentences with no signs of distress noted. ED Medical Decision Making - Medical Decision Making This is a 52-year-old male that presents with arthralgia. Patient is stable and was examined by me. Upon examination there is no deformity and patient is neurovascular intact. Patient received Motrin 800 mg by mouth in the ED which placed her symptoms of pain and tingling sensation is improving and subsided. Patient was instructed Follow-up with a primary care doctor in 3-5 days or if symptoms worsen and continue return to emergency room as soon as possible. At time of discharge, the patient does not seem toxic or ill in appearance. No acute signs of distress noted. Patient agrees to discharge treatment plan of care. No further questions noted by the patient. Critical care attestation.: If time is entered above; I have spent that time in minutes in the direct care of this critically ill patient, excluding procedure time. ED Disposition Clinical Impression: Arthralgia Qualifiers: Joint pain location: hand Laterality: bilateral Qualified Code(s): M25.541 - Pain in joints of right hand; M25.542 - Pain in joints of left hand; M25.542 - Pain in joints of left hand Disposition: DC- TO HOME OR SELFCARE Is pt being admited?: No Does the pt Need Aspirin: No Condition: Stable Instructions: Arthralgia (ED), Naproxen (By mouth) Additional Instructions: Follow-up with a primary care doctor in 3-5 days or if symptoms worsen and continue return to emergency room as soon as possible. Prescriptions: Naproxen 500 mg PO Q8H PRN #30 tablet PRN Reason: Pain Referrals: PRIMARY CAREMD [Primary Care Provider] - 3-5 Days JASMIN CARDONA MD [Staff Physician] - 3-5 Days [facility] [Outside] - 3-5 Days [facility] [Outside] - 3-5 Days
== END 2017-06-24 10:26 | disposition home or self-care (01) ==
LOC: ED 04:13
DX: M25.541 Pain in joints of right hand (principal); M25.542 Pain in joints of left hand; E11.9 Type 2 diabetes mellitus without complications; K21.9 Gastro-esophageal reflux disease without esophagitis; F17.200 Nicotine dependence, unspecified, uncomplicated
CPT/HCPCS: 99282

== ENCOUNTER 2017-11-03 05:27 | Emergency (ER) | payer SELFPAY ==
[2017-11-03 07:57] LABS: Basophils % (Auto) 0.4 % (0.0-1.8); Eosinophils # (Auto) 0.1 K/mm3 (0.0-0.4); Hematocrit 41.7 % (35.5-45.6); Hemoglobin 13.9 gm/dl (11.8-15.2); Lymphocytes # (Auto) 1.7 K/mm3 (1.2-5.4); Lymphocytes % (Auto) 18.9 % (13.4-35.0); Mean Corpuscular HGB Conc 33 % (32-34); Mean Corpuscular Hemoglobin 31 pg (28-32); Mean Corpuscular Volume 94 fl (84-94); Monocytes # (Auto) 0.6 K/mm3 (0.0-0.8); Monocytes % (Auto) 6.4 % (0.0-7.3); Platelet Count 229 K/mm3 (140-440); Red Blood Count 4.44 M/mm3 (3.65-5.03); Red Cell Distribution Width 13.6 % (13.2-15.2)
[2017-11-03 08:22] LABS: Alanine Aminotransferase 15 units/L (7-56); Albumin 4.3 g/dL (3.9-5); BUN/Creatinine Ratio 16; Blood Urea Nitrogen 13 mg/dL (9-20); Calcium 8.6 mg/dL (8.4-10.2); Hemolysis Index 13; Lipase 32 units/L (13-60)
[2017-11-03 10:11] LABS: Bilirubin,Urine NEG (Negative); Blood,Urine NEG (Negative); Color,Urine Yellow (Yellow); Mucus,Urine FEW /HPF; Protein,Urine <15 mg/dL mg/dL (Negative); Urobilinogen,Urine < 2.0 mg/dL (<2.0); WBC,Urine < 1.0 /HPF (0.0-6.0)
[2017-11-03] MEDS ORDERED: CARAFATE PO ONE (11:02)
[2017-11-03] MEDS ORDERED: ZOFRAN ODT PO ONE (11:02)
[2017-11-03] MEDS ORDERED: TYLENOL PO ONE (11:02)
[2017-11-03] MEDS ORDERED: PEPCID PO ONE (11:02)
--- NOTE | 2017-11-03 11:03 | Emergency Department Report ---
ED Abdominal Pain HPI - General Chief Complaint: Abdominal Pain Stated Complaint: SEVERE ABD PAIN Time Seen by Provider: 11/03/17 10:31 Source: patient, RN notes reviewed, old records reviewed Mode of arrival: Ambulatory Limitations: No Limitations - History of Present Illness Initial Comments: This is a 52-year-old male. The patient presents to the ER with a complaint of lower abdominal pain, and thinks he has food poisoning. Past medical history includes diabetes, schizophrenia, GERD. He cannot describe exacerbating or relieving factors. He denies testicular pain. He denies irritative, obstructive urinary symptoms. He wants to know if he needs antibiotics for food poisoning. He denies diarrhea. MD Complaint: abdominal pain -: Gradual Location: LLQ, RLQ, suprapubic Migration to: no migration Severity: mild Quality: cramping Consistency: intermittent Improves With: nothing Worsens With: nothing Associated Symptoms: other (there is no testicular pain. No irritative urinary symptoms.). denies: vomiting, diarrhea, fever, chills, constipation, dysuria, hematemesis, hematochezia, melena, hematuria, anorexia, syncope - Related Data Previous Rx's Medication Instructions Recorded Last Taken Type HYDROcodone/APAP 7.5-325 [[place] 1 each PO Q6HR PRN #20 tablet 05/02/13 Unknown Rx 7.5/325 mg] Ibuprofen [Motrin 800 MG tab] 800 mg PO Q8HR PRN #30 tablet 05/22/16 Unknown Rx methOCARBAMOL [Robaxin TAB] 500 mg PO BID #20 tab 05/22/16 Unknown Rx Azithromycin [Zithromax TAB] 500 mg PO QDAY #5 tablet 01/23/17 Unknown Rx Tamsulosin [Flomax] 0.4 mg PO QDAY #14 cap 01/23/17 Unknown Rx guaiFENesin [Robitussin] 200 mg PO Q6HR #20 tablet 01/23/17 Unknown Rx carBAMazepine [TEGretol] 100 mg PO BID #60 tablet 04/08/17 Unknown Rx Ciprofloxacin HCl [Ciprofloxacin 500 mg PO Q12H 10 Days #20 tab 05/08/17 Unknown Rx TAB] Ciprofloxacin 0.3% (Nf) 5 drops OD Q8H #1 drops 05/15/17 Unknown Rx [Ciprofloxacin OPTH] Ibuprofen [Motrin] 600 mg PO Q8H PRN #30 tablet 05/27/17 Unknown Rx Menthol [[place] Medicated Foot] 1 applicatio TP BID #1 powder 06/01/17 Unknown Rx Naproxen 500 mg PO BID PRN #30 tablet 06/01/17 Unknown Rx Naproxen 500 mg PO Q8H PRN #30 tablet 06/24/17 Unknown Rx Acetaminophen [Tylenol Arthritis] 650 mg PO Q6HR PRN #30 tablet.er 11/03/17 Unknown Rx Ondansetron [Zofran Odt] 4 mg PO Q8HR PRN #20 tab.rapdis 11/03/17 Unknown Rx Allergies Allergy/AdvReac Type Severity Reaction Status Date / Time No Known Allergies Allergy Unverified 05/02/13 16:56 ED Review of Systems ROS: Stated complaint: SEVERE ABD PAIN Other details as noted in HPI Comment: All other systems reviewed and negative ED Past Medical Hx - Past Medical History Hx Diabetes: Yes Hx GERD: Yes Hx Psychiatric Treatment: Yes (schizophrenia) - Surgical History Additional Surgical History: Head, ear, knee - Social History Smoking Status: Never Smoker Substance Use Type: None - Medications Home Medications: Home Medications Medication Instructions Recorded Confirmed Last Taken Type HYDROcodone/APAP 7.5-325 [[place] 1 each PO Q6HR PRN #20 tablet 05/02/13 04/07/17 Unknown Rx 7.5/325 mg] Ibuprofen [Motrin 800 MG tab] 800 mg PO Q8HR PRN #30 tablet 05/22/16 04/07/17 Unknown Rx methOCARBAMOL [Robaxin TAB] 500 mg PO BID #20 tab 05/22/16 04/07/17 Unknown Rx Azithromycin [Zithromax TAB] 500 mg PO QDAY #5 tablet 01/23/17 04/07/17 Unknown Rx Tamsulosin [Flomax] 0.4 mg PO QDAY #14 cap 01/23/17 04/07/17 Unknown Rx guaiFENesin [Robitussin] 200 mg PO Q6HR #20 tablet 01/23/17 04/07/17 Unknown Rx carBAMazepine [TEGretol] 100 mg PO BID #60 tablet 04/08/17 Unknown Rx Ciprofloxacin HCl [Ciprofloxacin 500 mg PO Q12H 10 Days #20 tab 05/08/17 Unknown Rx TAB] Ciprofloxacin 0.3% (Nf) 5 drops OD Q8H #1 drops 05/15/17 Unknown Rx [Ciprofloxacin OPTH] Ibuprofen [Motrin] 600 mg PO Q8H PRN #30 tablet 05/27/17 Unknown Rx Menthol [[place] Medicated Foot] 1 applicatio TP BID #1 powder 06/01/17 Unknown Rx Naproxen 500 mg PO BID PRN #30 tablet 06/01/17 Unknown Rx Naproxen 500 mg PO Q8H PRN #30 tablet 06/24/17 Unknown Rx Acetaminophen [Tylenol Arthritis] 650 mg PO Q6HR PRN #30 tablet.er 11/03/17 Unknown Rx Ondansetron [Zofran Odt] 4 mg PO Q8HR PRN #20 tab.rapdis 11/03/17 Unknown Rx ED Physical Exam - General Limitations: No Limitations General appearance: alert, in no apparent distress - Head Head exam: Present: atraumatic, normocephalic - Eye Eye exam: Present: normal appearance, EOMI. Absent: nystagmus - ENT ENT exam: Present: normal exam, normal orophraynx, mucous membranes moist, normal external ear exam - Neck Neck exam: Present: normal inspection, full ROM - Respiratory Respiratory exam: Present: normal lung sounds bilaterally. Absent: respiratory distress - Cardiovascular Cardiovascular Exam: Present: regular rate, normal rhythm, normal heart sounds. Absent: systolic murmur, diastolic murmur, rubs, gallop - GI/Abdominal GI/Abdominal exam: Present: soft, normal bowel sounds. Absent: distended, tenderness, guarding, rebound, rigid, pulsatile mass - Rectal Rectal exam: Present: deferred - exam: Present: normal inspection. Absent: testicular tenderness External exam: Present: normal external exam, other (there is no testicular tenderness. There is normal testicular lie bilaterally. There is normal cremasteric reflex bilaterally.) - Extremities Exam Extremities exam: Present: normal inspection, full ROM. Absent: pedal edema, calf tenderness - Back Exam Back exam: Present: normal inspection, full ROM. Absent: tenderness, CVA tenderness (R), paraspinal tenderness, vertebral tenderness - Neurological Exam Neurological exam: Present: alert, oriented X3, CN II-XII intact, normal gait, other (Extraocular movements intact. Tongue midline. No facial droop. Facial sensation intact to light touch in the V1, V2, V3 distribution bilaterally. 5 and 5 strength in 4 extremities.. Sensation is intact to light touch in 4 extremities.). Absent: motor sensory deficit - Psychiatric Psychiatric exam: Present: agitated, anxious - Skin Skin exam: Present: warm, dry, intact, normal color. Absent: rash ED Course Vital Signs 11/03/17 11/03/17 06:50 11:29 Temperature 97.9 F Pulse Rate 94 H Respiratory 18 16 Rate Blood Pressure 115/73 O2 Sat by Pulse 100 Oximetry - Reevaluation(s) Reevaluation #1: 11/03/17 12:15 Differential diagnosis, including not limited to: Enteritis, constipation, appendicitis, renal colic Assessment and plan: 52-year-old male with complaint of lower abdominal pain. He is nontender. His physical exam is unremarkable. there is no testicular tenderness. There is normal testicular lie bilaterally. There is normal cremasteric reflex bilaterally.; Escorted by ASTRID MNOROY Laboratory studies unremarkable, genital exam unremarkable, tolerating liquid feeds, noncontrast CT scan of the abdomen and pelvis negative for acute findings , patient resting comfortably with stable vital signs, does not appear to be an emergent condition at this time. The patient will be discharged. ED Medical Decision Making - Lab Data Result diagrams: 11/03/17 07:16 11/03/17 07:16 Vital Signs 11/03/17 11/03/17 06:50 11:29 Temperature 97.9 F Pulse Rate 94 H Respiratory 18 16 Rate Blood Pressure 115/73 O2 Sat by Pulse 100 Oximetry Lab Results 11/03/17 11/03/17 11/03/17 Range/Units 07:16 07:16 Unknown WBC 8.8 (4.5-11.0) K/mm3 RBC 4.44 (3.65-5.03) M/mm3 Hgb 13.9 (11.8-15.2) gm/dl Hct 41.7 (35.5-45.6) % MCV 94 (84-94) fl MCH 31 (28-32) pg MCHC 33 (32-34) % RDW 13.6 (13.2-15.2) % Plt Count 229 (140-440) K/mm3 Lymph % (Auto) 18.9 (13.4-35.0) % [place] % (Auto) 6.4 (0.0-7.3) % Eos % (Auto) 1.0 (0.0-4.3) % Baso % (Auto) 0.4 (0.0-1.8) % Lymph # 1.7 (1.2-5.4) K/mm3 [place] # 0.6 (0.0-0.8) K/mm3 Eos # 0.1 (0.0-0.4) K/mm3 Baso # 0.0 (0.0-0.1) K/mm3 Seg Neutrophils % 73.3 H (40.0-70.0) % Seg Neutrophils # 6.5 (1.8-7.7) K/mm3 Sodium 144 (137-145) mmol/L Potassium 4.2 (3.6-5.0) mmol/L Chloride 103.0 (98-107) mmol/L Carbon Dioxide 28 (22-30) mmol/L Anion Gap 17 mmol/L BUN 13 (9-20) mg/dL Creatinine 0.8 (0.8-1.5) mg/dL Estimated GFR > 60 ml/min BUN/Creatinine Ratio 16 % Glucose 110 H (75-100) mg/dL Calcium 8.6 (8.4-10.2) mg/dL Total Bilirubin 0.20 (0.1-1.2) mg/dL AST 19 (5-40) units/L ALT 15 (7-56) units/L Alkaline Phosphatase 88 (35-129) units/L Total Protein 7.0 (6.3-8.2) g/dL Albumin 4.3 (3.9-5) g/dL Albumin/Globulin Ratio 1.6 % Lipase 32 (13-60) units/L Urine Color Yellow (Yellow) Urine Turbidity Clear (Clear) Urine pH 7.0 (5.0-7.0) Ur Specific [place] 1.011 (1.003-1.030) Urine Protein <15 mg/dl (Negative) mg/dL Urine Glucose (UA) Neg (Negative) mg/dL Urine Ketones Neg (Negative) mg/dL Urine Blood Neg (Negative) Urine Nitrite Neg (Negative) Urine Bilirubin Neg (Negative) Urine Urobilinogen < 2.0 (<2.0) mg/dL Ur Leukocyte Esterase Neg (Negative) Urine WBC (Auto) < 1.0 (0.0-6.0) /HPF Urine RBC (Auto) 1.0 (0.0-6.0) /HPF Urine Mucus Few /HPF - Radiology Data Radiology results: report reviewed, image reviewed Noncontrast CT scan of the abdomen and pelvis is negative for acute disease, acute findings. Critical care attestation.: If time is entered above; I have spent that time in minutes in the direct care of this critically ill patient, excluding procedure time. ED Disposition Clinical Impression: Lower abdominal pain Disposition: TO HOME OR SELFCARE Is pt being admited?: No Does the pt Need Aspirin: No Condition: Stable Instructions: Abdominal Pain (ED) Additional Instructions: Take the pain medication, nausea medication as needed/directed. Follow up with a primary care doctor within the next week. Return to the ER right away with new pain, worsened pain, migration of pain, fevers, chills, lethargy, irritability, projectile vomiting, change in mental status, confusion, inability to tolerate liquid feeds. Referrals: PRIMARY MD KEATON [Primary Care Provider] - 3-5 Days FEDERICO BENNETT MD [Staff Physician] - 3-5 Days [facility] [Provider Group] - 3-5 Days
--- NOTE | 2017-11-03 11:48 | Cat Scan Report ---
CT ABDOMEN PELVIS WITHOUT CONTRAST: HISTORY: abdominal pain. COMPARISON: 04/06/17. TECHNIQUE: Helical CT in 1.25mm intervals without IV contrast. Sagittal and coronal reconstructions. FINDINGS: Lung bases: Normal. Liver: Within normal limits. 1 cm right hepatic lobe cyst or hemangioma and is unchanged. Biliary system: Within normal limits. The gallbladder is contracted. Pancreas: Normal. Spleen: Normal. Kidneys/ureters/bladder: Unremarkable. 1 cm left renal hypodensity is unchanged and probably represents a small cyst. Adrenal glands: Normal. Aorta: Normal. Intestines: Unremarkable given no oral contrast was administered. Appendix: Normal. Pelvic viscera: Normal. Ascites: None. Adenopathy: None. Musculoskeletal: Intact. Mild thoracolumbar spondylosis is noted. IMPRESSION: No acute abdominal process is identified. No significant change since 04/06/17.
[2017-11-03 12:29] VITALS: BP 125/76
== END 2017-11-03 13:17 | disposition home or self-care (01) ==
LOC: ED 05:27
DX: R10.32 Left lower quadrant pain (principal); R10.31 Right lower quadrant pain; E11.9 Type 2 diabetes mellitus without complications; K21.9 Gastro-esophageal reflux disease without esophagitis; F20.9 Schizophrenia, unspecified
CPT/HCPCS: 36415; 74176; 80053; 81001; 83690; 85025; Q0162

== ENCOUNTER 2017-11-08 02:12 | Emergency (ER) | payer OTHER ==
[2017-11-08] MEDS ORDERED: NACL 0.9% 1000 ML 1,000 ML IV ONE (03:48)
[2017-11-08 05:04] LABS: Basophils % (Auto) 0.7 % (0.0-1.8); Eosinophils # (Auto) 0.2 K/mm3 (0.0-0.4); Eosinophils % (Auto) 2.6 % (0.0-4.3); Hemoglobin 15.2 gm/dl (11.8-15.2); Lymphocytes # (Auto) 2.1 K/mm3 (1.2-5.4); Lymphocytes % (Auto) 29.4 % (13.4-35.0); Mean Corpuscular HGB Conc 34 % (32-34); Mean Corpuscular Hemoglobin 32 pg (28-32); Mean Corpuscular Volume 93 fl (84-94); Monocytes % (Auto) 13.7 % (0.0-7.3); Platelet Count 270 K/mm3 (140-440); Red Blood Count 4.82 M/mm3 (3.65-5.03); Red Cell Distribution Width 13.6 % (13.2-15.2)
[2017-11-08 05:20] LABS: Alanine Aminotransferase 16 units/L (7-56); Albumin 4.7 g/dL (3.9-5); BUN/Creatinine Ratio 29; Blood Urea Nitrogen 29 mg/dL (9-20); Calcium 9.1 mg/dL (8.4-10.2); Hemolysis Index 7
[2017-11-08 08:10] LABS: Bilirubin,Urine NEG (Negative); Blood,Urine NEG (Negative); Color,Urine Yellow (Yellow); Hyaline Casts,Urine 3 /LPF; Mucus,Urine FEW /HPF; Protein,Urine <15 mg/dL mg/dL (Negative)
[2017-11-08] MEDS ORDERED: ATIVAN PO ONE (09:20)
[2017-11-08] MEDS ORDERED: RisperDAL PO ONE (09:20)
[2017-11-08 09:26] LABS: Creatine Kinase MB 3.6 ng/mL (0.0-4.0)
--- NOTE | 2017-11-08 09:26 | Emergency Department Report ---
ED General Adult HPI - General Chief complaint: Abdominal Pain Stated complaint: ABD PAIN Time Seen by Provider: 11/08/17 08:40 Source: patient Mode of arrival: Ambulatory Limitations: No Limitations - History of Present Illness Initial comments: This is a 52 year old male with a history of bipolar disorder/schizophrenia. On my encounter he is clearly very hypo-manic. He has pressured speech. He is cooperative with me however. He admits that he is off his risperidone, Tegretol and that he has just gotten out of group home yesterday. He states he is not here for abdominal pain at all although this is what his triage note indicates. He states that he has trouble urinating and problems with his "kidneys". He states that he feels like his urine goes up "inside" of him. He also has a history of cocaine abuse. -: days(s) Radiation: other (now the patient denies pain) Severity scale (0 -10): 0 Quality: other (urgency on urinating) Consistency: intermittent Improves with: none Worsens with: none Associated Symptoms: denies other symptoms Treatments Prior to Arrival: none - Related Data Previous Rx's Medication Instructions Recorded Last Taken Type HYDROcodone/APAP 7.5-325 [[place] 1 each PO Q6HR PRN #20 tablet 05/02/13 Unknown Rx 7.5/325 mg] Ibuprofen [Motrin 800 MG tab] 800 mg PO Q8HR PRN #30 tablet 05/22/16 Unknown Rx methOCARBAMOL [Robaxin TAB] 500 mg PO BID #20 tab 05/22/16 Unknown Rx Azithromycin [Zithromax TAB] 500 mg PO QDAY #5 tablet 01/23/17 Unknown Rx Tamsulosin [Flomax] 0.4 mg PO QDAY #14 cap 01/23/17 Unknown Rx guaiFENesin [Robitussin] 200 mg PO Q6HR #20 tablet 01/23/17 Unknown Rx carBAMazepine [TEGretol] 100 mg PO BID #60 tablet 04/08/17 Unknown Rx Ciprofloxacin HCl [Ciprofloxacin 500 mg PO Q12H 10 Days #20 tab 05/08/17 Unknown Rx TAB] Ciprofloxacin 0.3% (Nf) 5 drops OD Q8H #1 drops 05/15/17 Unknown Rx [Ciprofloxacin OPTH] Ibuprofen [Motrin] 600 mg PO Q8H PRN #30 tablet 05/27/17 Unknown Rx Menthol [[place] Chris Medicated Foot] 1 applicatio TP BID #1 powder 06/01/17 Unknown Rx Naproxen 500 mg PO BID PRN #30 tablet 06/01/17 Unknown Rx Naproxen 500 mg PO Q8H PRN #30 tablet 06/24/17 Unknown Rx Acetaminophen [Tylenol Arthritis] 650 mg PO Q6HR PRN #30 tablet.er 11/03/17 Unknown Rx Ondansetron [Zofran Odt] 4 mg PO Q8HR PRN #20 tab.rapdis 11/03/17 Unknown Rx carBAMazepine [TEGretol] 200 mg PO Q12HR #60 tab 11/08/17 Unknown Rx risperiDONE [RisperiDONE] 1 mg PO BID #60 tab 11/08/17 Unknown Rx Allergies Allergy/AdvReac Type Severity Reaction Status Date / Time No Known Allergies Allergy Unverified 05/02/13 16:56 ED Review of Systems ROS: Stated complaint: ABD PAIN Other details as noted in HPI Constitutional: denies: chills, fever Eyes: denies: eye pain, eye discharge, vision change ENT: denies: ear pain, throat pain Respiratory: denies: cough, shortness of breath, wheezing Cardiovascular: denies: chest pain, palpitations Endocrine: no symptoms reported Gastrointestinal: denies: abdominal pain, nausea, diarrhea Genitourinary: as per HPI, urgency. denies: dysuria Musculoskeletal: denies: back pain, joint swelling, arthralgia Skin: denies: rash, lesions Neurological: denies: headache, weakness, paresthesias Psychiatric: denies: anxiety, depression Hematological/Lymphatic: denies: easy bleeding, easy bruising ED Past Medical Hx - Past Medical History Previous Medical History?: Yes Hx Diabetes: Yes Hx GERD: Yes Hx Psychiatric Treatment: Yes (schizophrenia) - Surgical History Past Surgical History?: Yes Additional Surgical History: Head, ear, knee - Social History Smoking Status: Never Smoker Substance Use Type: None - Medications Home Medications: Home Medications Medication Instructions Recorded Confirmed Last Taken Type HYDROcodone/APAP 7.5-325 [[place] 1 each PO Q6HR PRN #20 tablet 05/02/13 04/07/17 Unknown Rx 7.5/325 mg] Ibuprofen [Motrin 800 MG tab] 800 mg PO Q8HR PRN #30 tablet 05/22/16 04/07/17 Unknown Rx methOCARBAMOL [Robaxin TAB] 500 mg PO BID #20 tab 05/22/16 04/07/17 Unknown Rx Azithromycin [Zithromax TAB] 500 mg PO QDAY #5 tablet 01/23/17 04/07/17 Unknown Rx Tamsulosin [Flomax] 0.4 mg PO QDAY #14 cap 01/23/17 04/07/17 Unknown Rx guaiFENesin [Robitussin] 200 mg PO Q6HR #20 tablet 01/23/17 04/07/17 Unknown Rx carBAMazepine [TEGretol] 100 mg PO BID #60 tablet 04/08/17 Unknown Rx Ciprofloxacin HCl [Ciprofloxacin 500 mg PO Q12H 10 Days #20 tab 05/08/17 Unknown Rx TAB] Ciprofloxacin 0.3% (Nf) 5 drops OD Q8H #1 drops 05/15/17 Unknown Rx [Ciprofloxacin OPTH] Ibuprofen [Motrin] 600 mg PO Q8H PRN #30 tablet 05/27/17 Unknown Rx Menthol [[place] Chris Medicated Foot] 1 applicatio TP BID #1 powder 06/01/17 Unknown Rx Naproxen 500 mg PO BID PRN #30 tablet 06/01/17 Unknown Rx Naproxen 500 mg PO Q8H PRN #30 tablet 06/24/17 Unknown Rx Acetaminophen [Tylenol Arthritis] 650 mg PO Q6HR PRN #30 tablet.er 11/03/17 Unknown Rx Ondansetron [Zofran Odt] 4 mg PO Q8HR PRN #20 tab.rapdis 11/03/17 Unknown Rx carBAMazepine [TEGretol] 200 mg PO Q12HR #60 tab 11/08/17 Unknown Rx risperiDONE [RisperiDONE] 1 mg PO BID #60 tab 11/08/17 Unknown Rx ED Physical Exam - General Limitations: No Limitations General appearance: alert, in no apparent distress - Head Head exam: Present: atraumatic, normocephalic - Eye Eye exam: Present: normal appearance, PERRL, EOMI. Absent: scleral icterus - ENT ENT exam: Present: mucous membranes moist - Neck Neck exam: Present: normal inspection. Absent: tenderness, meningismus - Respiratory Respiratory exam: Present: normal lung sounds bilaterally. Absent: respiratory distress - Cardiovascular Cardiovascular Exam: Present: regular rate, normal rhythm. Absent: systolic murmur, diastolic murmur, rubs, gallop - GI/Abdominal GI/Abdominal exam: Present: soft, normal bowel sounds. Absent: distended, tenderness, guarding, rebound, rigid - Rectal Rectal exam: Present: deferred - Extremities Exam Extremities exam: Present: normal inspection - Back Exam Back exam: Present: normal inspection - Neurological Exam Neurological exam: Present: alert, oriented X3, CN II-XII intact. Absent: motor sensory deficit - Psychiatric Psychiatric exam: Present: normal affect, normal mood - Skin Skin exam: Present: warm, dry, intact, normal color. Absent: rash ED Course Vital Signs 11/08/17 11/08/17 02:45 08:17 Temperature 98.5 F 97.9 F Pulse Rate 72 87 Respiratory 18 20 Rate Blood Pressure 134/68 107/82 O2 Sat by Pulse 99 98 Oximetry - Reevaluation(s) Reevaluation #1: The patient is poorly cooperative with medical intervention. His laboratory abnormalities should correct with oral rehydration. He is directed to do so. He is referred to the [facility] including [facility] for further care and evaluation. He will be given a prescription for his mental health medication. 11/08/17 09:52 ED Medical Decision Making - Lab Data Result diagrams: 11/08/17 03:55 11/08/17 03:55 Laboratory Results - last 24 hr 11/08/17 11/08/17 11/08/17 03:55 03:55 06:44 WBC 7.0 RBC 4.82 Hgb 15.2 Hct 45.0 MCV 93 MCH 32 MCHC 34 RDW 13.6 Plt Count 270 Lymph % (Auto) 29.4 [place] % (Auto) 13.7 H Eos % (Auto) 2.6 Baso % (Auto) 0.7 Lymph # 2.1 [place] # 1.0 H Eos # 0.2 Baso # 0.0 Seg Neutrophils % 53.6 Seg Neutrophils # 3.8 Sodium 141 Potassium 4.5 Chloride 97.5 L Carbon Dioxide 31 H Anion Gap 17 BUN 29 H Creatinine 1.0 Estimated GFR > 60 BUN/Creatinine Ratio 29 Glucose 93 Calcium 9.1 Total Bilirubin 0.30 AST 20 ALT 16 Alkaline Phosphatase 87 Total Protein 7.8 Albumin 4.7 Albumin/Globulin Ratio 1.5 Urine Color Yellow Urine Turbidity Clear Urine pH 5.0 Ur Specific [place] 1.029 Urine Protein <15 mg/dl Urine Glucose (UA) Neg Urine Ketones Neg Urine Blood Neg Urine Nitrite Neg Urine Bilirubin Neg Urine Urobilinogen 2.0 Ur Leukocyte Esterase Neg Urine WBC (Auto) 1.0 Urine RBC (Auto) 3.0 Hyaline Casts 3 Urine Mucus Few - EKG Data -: EKG Interpreted by Me EKG shows normal: sinus rhythm, axis, intervals, QRS complexes, ST-T waves Rate: normal - EKG Data Interpretation: no acute changes, other (possible left atrial abnormality) Critical care attestation.: If time is entered above; I have spent that time in minutes in the direct care of this critically ill patient, excluding procedure time. ED Disposition Clinical Impression: Psychiatric disorder, Somatic symptom disorder, Elevated CK, Dehydration, Cocaine abuse Disposition: DC- TO HOME OR SELFCARE Is pt being admited?: No Does the pt Need Aspirin: No Condition: Stable Instructions: Schizophrenia (ED), Dehydration (ED), Cocaine Abuse (ED) Additional Instructions: It is very important that you drink a lot of fluids today. Obviously cocaine is bad for your physical and mental health. Follow-up with the [facility] and the [facility]. Prescriptions: carBAMazepine [TEGretol] 200 mg PO Q12HR #60 tab risperiDONE [RisperiDONE] 1 mg PO BID #60 tab Referrals: PRIMARY CARE, [Primary Care Provider] - 3-5 Days Time of Disposition: 09:53
[2017-11-08 09:36] LABS: Amphetamine Screen,Urine PRESUMPTIVE NEGATIVE; Benzodiazepines Screen,Urine PRESUMPTIVE NEGATIVE; Methadone Screen,Urine PRESUMPTIVE NEGATIVE; Opiate Screen,Urine PRESUMPTIVE NEGATIVE
[2017-11-08 09:48] LABS: Cannabinoid Screen,Urine PRESUMPTIVE POSITIVE; Cocaine Screen,Urine PRESUMPTIVE POSITIVE
[2017-11-08 10:33] VITALS: BP 125/73
== END 2017-11-08 10:33 | disposition home or self-care (01) ==
LOC: ED 02:12
DX: E86.0 Dehydration (principal); R74.8 Abnormal levels of other serum enzymes; F45.1 Undifferentiated somatoform disorder; F99 Mental disorder, not otherwise specified; E11.9 Type 2 diabetes mellitus without complications; K21.9 Gastro-esophageal reflux disease without esophagitis; F12.10 Cannabis abuse, uncomplicated; F20.9 Schizophrenia, unspecified; Z79.899 Other long term (current) drug therapy
CPT/HCPCS: 36415; 80053; 80307; 81001; 82550; 82553; 84484; 85025; 93005; 93010; 99283

== ENCOUNTER 2017-11-08 15:40 | Emergency (ER) | payer SELFPAY ==
[2017-11-08 15:51] VITALS: BP 126/84
--- NOTE | 2017-11-08 16:28 | Cat Scan Report ---
FINAL REPORT PROCEDURE: CT head without contrast. TECHNIQUE: Computerized tomography of the head was performed without contrast material. HISTORY: neuro deficits < 6hrs or sx present upon awakening COMPARISON: CT head 04/06/2017. FINDINGS: The ventricles are normal in size. The francis matter and white matter appear normal. There are no mass lesions. There is no intracranial hemorrhage. The calvarium appears intact. The mastoid air cells and paranasal sinuses are clear. IMPRESSION: Normal study.
[2017-11-08 17:09] LABS: Hematocrit 43.1 % (35.5-45.6); Hemoglobin 14.7 gm/dl (11.8-15.2); Mean Corpuscular HGB Conc 34 % (32-34); Mean Corpuscular Hemoglobin 32 pg (28-32); Mean Corpuscular Volume 94 fl (84-94); Platelet Count 229 K/mm3 (140-440); Red Blood Count 4.57 M/mm3 (3.65-5.03); Red Cell Distribution Width 13.6 % (13.2-15.2)
[2017-11-08 17:20] LABS: BUN/Creatinine Ratio 24; Blood Urea Nitrogen 19 mg/dL (9-20); Calcium 8.7 mg/dL (8.4-10.2); Hemolysis Index 14
[2017-11-08 17:47] LABS: INR 0.83 (0.87-1.13); Partial Thromboplastin Time 26.1 Sec. (24.2-36.6)
[2017-11-08 18:08] LABS: Basophils % (Manual) 0 % (0.0-1.8); RBC Morphology Normal; Total Cells Counted 100
--- NOTE | 2017-11-08 18:51 | Emergency Department Report ---
ED Altered Mental Status HPI - General Chief Complaint: Altered Mental Status Stated Complaint: ALTERED MENTAL STATUS Time Seen by Provider: 11/08/17 16:33 Source: patient Mode of arrival: Stretcher Limitations: Altered Mental Status - History of Present Illness Initial Comments: Patient was seen earlier today in the ER for urinary complaints. During his time in the ER, it was found that he had been noncompliant with his psychiatric medication for his schizophrenia. Lab work, urinalysis, and CT head were unremarkable. Patient was given a dose of his Risperdal and Tegretol in the ER. The patient went upstairs in the hospital to visit with his brother after being discharged. While in his brother's room, he was found to be lethargic and slow to arouse. So, he was sent back down to the ER for reevaluation. Patient admits to using cocaine after being discharged from the ER. He has no somatic complaints at this point in time. - Related Data Previous Rx's Medication Instructions Recorded Last Taken Type HYDROcodone/APAP 7.5-325 [Divide 1 each PO Q6HR PRN #20 tablet 05/02/13 Unknown Rx 7.5/325 mg] Ibuprofen [Motrin 800 MG tab] 800 mg PO Q8HR PRN #30 tablet 05/22/16 Unknown Rx methOCARBAMOL [Robaxin TAB] 500 mg PO BID #20 tab 05/22/16 Unknown Rx Azithromycin [Zithromax TAB] 500 mg PO QDAY #5 tablet 01/23/17 Unknown Rx Tamsulosin [Flomax] 0.4 mg PO QDAY #14 cap 01/23/17 Unknown Rx guaiFENesin [Robitussin] 200 mg PO Q6HR #20 tablet 01/23/17 Unknown Rx carBAMazepine [TEGretol] 100 mg PO BID #60 tablet 04/08/17 Unknown Rx Ciprofloxacin HCl [Ciprofloxacin 500 mg PO Q12H 10 Days #20 tab 05/08/17 Unknown Rx TAB] Ciprofloxacin 0.3% (Nf) 5 drops OD Q8H #1 drops 05/15/17 Unknown Rx [Ciprofloxacin OPTH] Ibuprofen [Motrin] 600 mg PO Q8H PRN #30 tablet 05/27/17 Unknown Rx Menthol [Gold Chris Medicated Foot] 1 applicatio TP BID #1 powder 06/01/17 Unknown Rx Naproxen 500 mg PO BID PRN #30 tablet 06/01/17 Unknown Rx Naproxen 500 mg PO Q8H PRN #30 tablet 06/24/17 Unknown Rx Acetaminophen [Tylenol Arthritis] 650 mg PO Q6HR PRN #30 tablet.er 11/03/17 Unknown Rx Ondansetron [Zofran Odt] 4 mg PO Q8HR PRN #20 tab.rapdis 11/03/17 Unknown Rx carBAMazepine [TEGretol] 200 mg PO Q12HR #60 tab 11/08/17 Unknown Rx risperiDONE [RisperiDONE] 1 mg PO BID #60 tab 11/08/17 Unknown Rx Allergies Allergy/AdvReac Type Severity Reaction Status Date / Time No Known Allergies Allergy Unverified 05/02/13 16:56 ED Review of Systems ROS: Stated complaint: ALTERED MENTAL STATUS Other details as noted in HPI Comment: All other systems reviewed and negative Constitutional: malaise ED Past Medical Hx - Past Medical History Previous Medical History?: Yes Hx Diabetes: Yes Hx GERD: Yes Hx Psychiatric Treatment: Yes (schizophrenia) - Surgical History Additional Surgical History: Head, ear, knee - Social History Smoking Status: Unknown if ever smoked Substance Use Type: Cocaine, Marijuana - Medications Home Medications: Home Medications Medication Instructions Recorded Confirmed Last Taken Type HYDROcodone/APAP 7.5-325 [Divide 1 each PO Q6HR PRN #20 tablet 05/02/13 04/07/17 Unknown Rx 7.5/325 mg] Ibuprofen [Motrin 800 MG tab] 800 mg PO Q8HR PRN #30 tablet 05/22/16 04/07/17 Unknown Rx methOCARBAMOL [Robaxin TAB] 500 mg PO BID #20 tab 05/22/16 04/07/17 Unknown Rx Azithromycin [Zithromax TAB] 500 mg PO QDAY #5 tablet 01/23/17 04/07/17 Unknown Rx Tamsulosin [Flomax] 0.4 mg PO QDAY #14 cap 01/23/17 04/07/17 Unknown Rx guaiFENesin [Robitussin] 200 mg PO Q6HR #20 tablet 01/23/17 04/07/17 Unknown Rx carBAMazepine [TEGretol] 100 mg PO BID #60 tablet 04/08/17 Unknown Rx Ciprofloxacin HCl [Ciprofloxacin 500 mg PO Q12H 10 Days #20 tab 05/08/17 Unknown Rx TAB] Ciprofloxacin 0.3% (Nf) 5 drops OD Q8H #1 drops 05/15/17 Unknown Rx [Ciprofloxacin OPTH] Ibuprofen [Motrin] 600 mg PO Q8H PRN #30 tablet 05/27/17 Unknown Rx Menthol [Gold Chris Medicated Foot] 1 applicatio TP BID #1 powder 06/01/17 Unknown Rx Naproxen 500 mg PO BID PRN #30 tablet 06/01/17 Unknown Rx Naproxen 500 mg PO Q8H PRN #30 tablet 06/24/17 Unknown Rx Acetaminophen [Tylenol Arthritis] 650 mg PO Q6HR PRN #30 tablet.er 11/03/17 Unknown Rx Ondansetron [Zofran Odt] 4 mg PO Q8HR PRN #20 tab.rapdis 11/03/17 Unknown Rx carBAMazepine [TEGretol] 200 mg PO Q12HR #60 tab 11/08/17 Unknown Rx risperiDONE [RisperiDONE] 1 mg PO BID #60 tab 11/08/17 Unknown Rx ED Physical Exam - General Limitations: Other (lethargic, GCS 15, easily arousable) General appearance: in no apparent distress, appears intoxicated, lethargic - Head Head exam: Present: atraumatic, normocephalic - Eye Eye exam: Present: normal appearance, PERRL - ENT ENT exam: Present: mucous membranes moist - Neck Neck exam: Present: normal inspection - Respiratory Respiratory exam: Present: normal lung sounds bilaterally. Absent: respiratory distress - Cardiovascular Cardiovascular Exam: Present: regular rate, normal rhythm. Absent: systolic murmur, diastolic murmur, rubs, gallop - GI/Abdominal GI/Abdominal exam: Present: soft, normal bowel sounds - Rectal Rectal exam: Present: deferred - Extremities Exam Extremities exam: Present: normal inspection - Back Exam Back exam: Present: normal inspection - Neurological Exam Neurological exam: Present: oriented X3 - Psychiatric Psychiatric exam: Present: normal affect, normal mood - Skin Skin exam: Present: warm, dry, intact, normal color. Absent: rash ED Course Vital Signs 11/08/17 15:47 Temperature 97.3 F L Pulse Rate 62 Respiratory 14 Rate Blood Pressure 126/84 O2 Sat by Pulse 99 Oximetry - Lab Data Result diagrams: 11/08/17 16:20 11/08/17 16:20 Lab Results 11/08/17 11/08/17 11/08/17 Range/Units 16:20 16:20 16:20 WBC 4.8 (4.5-11.0) K/mm3 RBC 4.57 (3.65-5.03) M/mm3 Hgb 14.7 (11.8-15.2) gm/dl Hct 43.1 (35.5-45.6) % MCV 94 (84-94) fl MCH 32 (28-32) pg MCHC 34 (32-34) % RDW 13.6 (13.2-15.2) % Plt Count 229 (140-440) K/mm3 [place] % (Auto) Fish Checker Add Manual Diff Complete Total Counted 100 Seg Neuts % (Manual) 40.0 (40.0-70.0) % Band Neutrophils % 0 % Lymphocytes % (Manual) 41.0 H (13.4-35.0) % Reactive Lymphs % (Man) 0 % Monocytes % (Manual) 13.0 H (0.0-7.3) % Eosinophils % (Manual) 6.0 H (0.0-4.3) % Basophils % (Manual) 0 (0.0-1.8) % Metamyelocytes % 0 % Myelocytes % 0 % Promyelocytes % 0 % Blast Cells % 0 % Nucleated RBC % Not Reportable Seg Neutrophils # Man 1.9 (1.8-7.7) K/mm3 Band Neutrophils # 0.0 K/mm3 Lymphocytes # (Manual) 2.0 (1.2-5.4) K/mm3 Abs React Lymphs (Man) 0.0 K/mm3 Monocytes # (Manual) 0.6 (0.0-0.8) K/mm3 Eosinophils # (Manual) 0.3 (0.0-0.4) K/mm3 Basophils # (Manual) 0.0 (0.0-0.1) K/mm3 Metamyelocytes # 0.0 K/mm3 Myelocytes # 0.0 K/mm3 Promyelocytes # 0.0 K/mm3 Blast Cells # 0.0 K/mm3 WBC Morphology Not Reportable Hypersegmented Neuts Not Reportable Hyposegmented Neuts Not Reportable Hypogranular Neuts Not Reportable Smudge Cells Not Reportable Toxic Granulation Not Reportable Toxic Vacuolation Not Reportable Dohle Bodies Not Reportable Pelger-Huet Anomaly Not Reportable Jackson Rods Not Reportable Platelet Estimate Not Reportable Clumped Platelets Not Reportable Plt Clumps, EDTA Not Reportable Large Platelets Not Reportable Giant Platelets Not Reportable Platelet Satelliting Not Reportable Plt Morphology Comment Not Reportable RBC Morphology Normal Dimorphic RBCs Not Reportable Polychromasia Not Reportable Hypochromasia Not Reportable Poikilocytosis Not Reportable Anisocytosis Not Reportable Microcytosis Not Reportable Macrocytosis Not Reportable Spherocytes Not Reportable Pappenheimer Bodies Not Reportable Sickle Cells Not Reportable Target Cells Not Reportable Tear Drop Cells Not Reportable Ovalocytes Not Reportable Helmet Cells Not Reportable Santana-[place] Bodies Not Reportable [place] Rings Not Reportable Emanuel Cells Not Reportable Bite Cells Not Reportable Crenated Cell Not Reportable Elliptocytes Not Reportable Acanthocytes (Spur) Not Reportable Rouleaux Not Reportable Hemoglobin C Crystals Not Reportable Schistocytes Not Reportable Malaria parasites Not Reportable Magan Bodies Not Reportable Hem Pathologist Commnt No PT 11.8 L (12.2-14.9) Sec. INR 0.83 L (0.87-1.13) APTT 26.1 (24.2-36.6) Sec. Thrombin Time (15.1-19.6) Sec. Sodium 139 (137-145) mmol/L Potassium 3.8 (3.6-5.0) mmol/L Chloride 98.9 (98-107) mmol/L Carbon Dioxide 30 (22-30) mmol/L Anion Gap 14 mmol/L BUN 19 (9-20) mg/dL Creatinine 0.8 (0.8-1.5) mg/dL Estimated GFR > 60 ml/min BUN/Creatinine Ratio 24 % Glucose 93 (75-100) mg/dL POC Glucose (70-105) Calcium 8.7 (8.4-10.2) mg/dL Troponin T < 0.010 (0.00-0.029) ng/mL 11/08/17 11/08/17 Range/Units 16:20 19:09 WBC (4.5-11.0) K/mm3 RBC (3.65-5.03) M/mm3 Hgb (11.8-15.2) gm/dl Hct (35.5-45.6) % MCV (84-94) fl MCH (28-32) pg MCHC (32-34) % RDW (13.2-15.2) % Plt Count (140-440) K/mm3 [place] % (Auto) Add Manual Diff Total Counted Seg Neuts % (Manual) (40.0-70.0) % Band Neutrophils % % Lymphocytes % (Manual) (13.4-35.0) % Reactive Lymphs % (Man) % Monocytes % (Manual) (0.0-7.3) % Eosinophils % (Manual) (0.0-4.3) % Basophils % (Manual) (0.0-1.8) % Metamyelocytes % % Myelocytes % % Promyelocytes % % Blast Cells % % Nucleated RBC % Seg Neutrophils # Man (1.8-7.7) K/mm3 Band Neutrophils # K/mm3 Lymphocytes # (Manual) (1.2-5.4) K/mm3 Abs React Lymphs (Man) K/mm3 Monocytes # (Manual) (0.0-0.8) K/mm3 Eosinophils # (Manual) (0.0-0.4) K/mm3 Basophils # (Manual) (0.0-0.1) K/mm3 Metamyelocytes # K/mm3 Myelocytes # K/mm3 Promyelocytes # K/mm3 Blast Cells # K/mm3 WBC Morphology Hypersegmented Neuts Hyposegmented Neuts Hypogranular Neuts Smudge Cells Toxic Granulation Toxic Vacuolation Dohle Bodies Pelger-Huet Anomaly Jackson Rods Platelet Estimate Clumped Platelets Plt Clumps, EDTA Large Platelets Giant Platelets Platelet Satelliting Plt Morphology Comment RBC Morphology Dimorphic RBCs Polychromasia Hypochromasia Poikilocytosis Anisocytosis Microcytosis Macrocytosis Spherocytes Pappenheimer Bodies Sickle Cells Target Cells Tear Drop Cells Ovalocytes Helmet Cells Santana-[place]ora Bodies [place] Rings Emanuel Cells Bite Cells Crenated Cell Elliptocytes Acanthocytes (Spur) Rouleaux Hemoglobin C Crystals Schistocytes Malaria parasites Magan Bodies Hem Pathologist Commnt PT (12.2-14.9) Sec. INR (0.87-1.13) APTT (24.2-36.6) Sec. Thrombin Time 16.1 (15.1-19.6) Sec. Sodium (137-145) mmol/L Potassium (3.6-5.0) mmol/L Chloride (98-107) mmol/L Carbon Dioxide (22-30) mmol/L Anion Gap mmol/L BUN (9-20) mg/dL Creatinine (0.8-1.5) mg/dL Estimated GFR ml/min BUN/Creatinine Ratio % Glucose (75-100) mg/dL POC Glucose 95 (70-105) Calcium (8.4-10.2) mg/dL Troponin T (0.00-0.029) ng/mL - Medical Decision Making 52-year-old male with past history of schizophrenia, bipolar disorder that presents to the ER with concern for altered mental status. Vital signs are stable. Patient is lethargic, but easily arousable. GCS fluctuates between 14 and 15. Patient was seen in the ER 2 hours ago. At that time he had a negative workup, including head CT. Blood glucose in the ER was 97. I believe patient to be intoxicated from some type of illegal substance. He admits to taking cocaine, but nothing else. Patient was observed in the ER for 3-4 hours. Afterwards, he was alert and oriented without signs of lethargy. He ambulated and ate without any difficulty. Denies SI, HI, AVH. I believe the patient is safe for medical discharge. - Differential Diagnosis intoxication, overdose, hypoglycemia, electrolyte abnormality, ICH Critical care attestation.: If time is entered above; I have spent that time in minutes in the direct care of this critically ill patient, excluding procedure time. ED Disposition Clinical Impression: Intoxication by drug Disposition: DC-01 TO HOME OR SELFCARE Is pt being admited?: No Condition: Stable Referrals: PRIMARY CARE, [Primary Care Provider] - 3-5 Days
== END 2017-11-08 20:00 | disposition home or self-care (01) ==
LOC: ED 15:40
DX: R41.82 Altered mental status, unspecified (principal); T43.595A Adverse effect of other antipsychotics and neuroleptics, initial encounter; T42.1X5A Adverse effect of iminostilbenes, initial encounter; E11.9 Type 2 diabetes mellitus without complications; K21.9 Gastro-esophageal reflux disease without esophagitis; F14.10 Cocaine abuse, uncomplicated; F12.10 Cannabis abuse, uncomplicated; Y92.89 Other specified places as the place of occurrence of the external cause
CPT/HCPCS: 36415; 70450; 80048; 82962; 84484; 85007; 85025; 85610; 85670; 85730; 99284

== ENCOUNTER 2017-11-09 05:05 | Emergency (ER) | payer SELFPAY | END 2017-11-09 05:06 | disposition left against medical advice (07) | LOC: ED 05:05 | DX: R51 Headache (principal); Z53.21 Procedure and treatment not carried out due to patient leaving prior to being seen by health care provider ==

== ENCOUNTER 2018-01-08 03:58 | Emergency (ER) | payer SELFPAY | END 2018-01-08 04:00 | disposition left against medical advice (07) | LOC: ED 03:58 | DX: H57.8 Other specified disorders of eye and adnexa (principal); Z53.21 Procedure and treatment not carried out due to patient leaving prior to being seen by health care provider ==

== ENCOUNTER 2018-06-12 01:39 | Emergency (ER) | payer OTHER ==
[2018-06-12 01:48] VITALS: BP 128/92
[2018-06-12] MEDS ORDERED: PERCOCET 5/325 PO ONE (03:46)
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
== END 2018-06-12 04:20 | disposition home or self-care (01) ==
LOC: ED 01:39
DX: M54.2 Cervicalgia (principal); G89.29 Other chronic pain; E11.9 Type 2 diabetes mellitus without complications; K21.9 Gastro-esophageal reflux disease without esophagitis; F17.200 Nicotine dependence, unspecified, uncomplicated
CPT/HCPCS: 99282

== ENCOUNTER 2019-06-10 00:25 | Emergency (ER) | payer SELFPAY ==
[2019-06-10 01:34] VITALS: BP 145/83
[2019-06-10] MEDS ORDERED: KETOROLAC 30 MG/1 ML INJ IM ONE (01:53)
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
== END 2019-06-10 03:21 | disposition home or self-care (01) ==
LOC: ED 00:25
DX: M54.9 Dorsalgia, unspecified (principal); G89.29 Other chronic pain; M79.604 Pain in right leg; E11.9 Type 2 diabetes mellitus without complications; F20.9 Schizophrenia, unspecified; K21.9 Gastro-esophageal reflux disease without esophagitis; M19.90 Unspecified osteoarthritis, unspecified site; F17.200 Nicotine dependence, unspecified, uncomplicated; Z98.890 Other specified postprocedural states; Z88.8 Allergy status to other drugs, medicaments and biological substances; Z79.899 Other long term (current) drug therapy
CPT/HCPCS: 96372; 99282; J1885

== ENCOUNTER 2019-06-12 04:12 | Emergency (ER) | payer SELFPAY ==
[2019-06-12 04:49] VITALS: BP 137/90
--- NOTE | 2019-06-12 07:48 | Emergency Department Report ---
Chief Complaint: Extremity Injury, Lower Stated Complaint: PAIN IN BOTH FEET,BACK,ARM,SORE THROAT Time Seen by Provider: 06/12/19 07:14 - HPI History of Present Illness: Patient is a 54-year-old male presents emergency room with complaints of bilateral feet pain. He states that his "corns are bothering him." pt states that his main complaint is that he is homeless and does not have anywhere to go. He states that he has been waiting for an opening at a place but it has not become open. He states he did not see case management during his last ER visit. He was in the emergency department 2 days ago and treated for chronic back pain. He was prescribed medications. He states he has not been taking the medications. denies any numbness, weakness, bowel or bladder incontinence, ulcerations, fever, chills, nausea, vomiting, diarrhea, any other symptoms. he states that he does walk frequently initial vitals with decreased oxygen saturation, on repeat it is 95%, pt is having no SOB no WILIAN, could be related to error in capturing in triage, oxygen saturation is currently normal on exam: No bony tenderness palpation of the bilateral feet, small calloused area to the left big toe, no signs of ulceration to the bilateral feet or in between the toes, strong distal pulses, sensation intact, no obvious deformity, no erythema, no increased warmth, no signs of infection pt is presenting with a nonmedical emergency at this time medical screening examination performed and there is no threat to life or limb at this time case management has been consulted due to homelessness advised pt may ice your feet for 15 minutes at a time. May place your feet in epsom salt bath. May take the medications you were prescribed during your last ER visit. Please follow-up with a primary care doctor in the next 2-3 days. Return to the emergency room for any new or worsening symptoms. - Exam Vital Signs: Vital Signs 06/12/19 04:44 Temperature 98.1 F Pulse Rate 87 Respiratory 18 Rate Blood Pressure 137/90 O2 Sat by Pulse 91 Oximetry MSE screening note: Focused history and physical exam performed. ED Medical Decision Making - Lab Data Vital Signs 06/12/19 06/12/19 04:44 08:09 Temperature 98.1 F Pulse Rate 87 89 Respiratory 18 20 Rate Blood Pressure 137/90 O2 Sat by Pulse 91 95 Oximetry ED Disposition for MSE Clinical Impression: Chronic pain of both feet, Homeless Disposition: Z-07 MED SCREENING EXAM-LEFT Is pt being admited?: No Does the pt Need Aspirin: No Condition: Stable Instructions: Arthralgia (ED) Additional Instructions: May ice your feet for 15 minutes at a time. May place your feet in epsom salt bath. May take the medications you were prescribed during your last ER visit. Please follow-up with a primary care doctor in the next 2-3 days. Return to the emergency room for any new or worsening symptoms. Referrals: ABDULKADIR ACOSTA MD [Staff Physician] - 2-3 Days [facility] [Outside] - 2-3 Days [facility] [Outside] - 2-3 Days Time of Disposition: 07:50 Print Language: [place]OU[place]
== END 2019-06-12 08:24 | disposition left against medical advice (07) ==
LOC: ED 04:12
DX: M79.672 Pain in left foot (principal); M79.671 Pain in right foot; G89.29 Other chronic pain; Z59.0 Homelessness

== ENCOUNTER 2019-06-13 22:19 | Emergency (ER) | payer SELFPAY ==
[2019-06-13 22:37] VITALS: BP 137/92
== END 2019-06-14 | disposition left against medical advice (07) ==
LOC: ED 22:19
DX: M79.605 Pain in left leg (principal); Z53.21 Procedure and treatment not carried out due to patient leaving prior to being seen by health care provider

== ENCOUNTER 2019-06-16 02:50 | Emergency (ER) | payer SELFPAY ==
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
[2019-06-16 11:55] VITALS: BP 146/86
== END 2019-06-16 11:55 | disposition left against medical advice (07) ==
LOC: EEVIPCON 02:50 → ED 02:50
DX: M54.2 Cervicalgia (principal); Z53.21 Procedure and treatment not carried out due to patient leaving prior to being seen by health care provider
CPT/HCPCS: 99282

== ENCOUNTER 2019-07-20 01:55 | Emergency (ER) | payer SELFPAY ==
[2019-07-20 08:13] VITALS: BP 139/92
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
== END 2019-07-20 08:37 | disposition left against medical advice (07) ==
LOC: ED 01:55
DX: M54.5 Low back pain (principal); G89.29 Other chronic pain; E11.9 Type 2 diabetes mellitus without complications; K21.9 Gastro-esophageal reflux disease without esophagitis; M19.91 Primary osteoarthritis, unspecified site; F20.9 Schizophrenia, unspecified; Z98.890 Other specified postprocedural states; F17.200 Nicotine dependence, unspecified, uncomplicated; Z79.899 Other long term (current) drug therapy; Z79.1 Long term (current) use of non-steroidal anti-inflammatories (NSAID); Z88.8 Allergy status to other drugs, medicaments and biological substances
CPT/HCPCS: 99281

== ENCOUNTER 2019-07-21 06:36 | Emergency (ER) | payer SELFPAY ==
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
[2019-07-21 11:05] LABS: Basophils % (Auto) 0.3 % (0.0-1.8); Eosinophils # (Auto) 0.1 K/mm3 (0.0-0.4); Eosinophils % (Auto) 0.5 % (0.0-4.3); Hematocrit 42.9 % (35.5-45.6); Hemoglobin 14.9 gm/dl (11.8-15.2); Lymphocytes # (Auto) 1.7 K/mm3 (1.2-5.4); Lymphocytes % (Auto) 15.9 % (13.4-35.0); Mean Corpuscular HGB Conc 35 % (32-34); Mean Corpuscular Volume 96 fl (84-94); Monocytes % (Auto) 9.4 % (0.0-7.3); Platelet Count 200 K/mm3 (140-440); Red Blood Count 4.48 M/mm3 (3.65-5.03); Red Cell Distribution Width 13.2 % (13.2-15.2)
[2019-07-21 11:18] LABS: Bilirubin,Urine NEG (Negative); Blood,Urine NEG (Negative); Color,Urine Yellow (Yellow); Mucus,Urine 3+ /HPF; RBC,Urine < 1.0 /HPF (0.0-6.0)
[2019-07-21 11:25] LABS: BUN/Creatinine Ratio 10; Blood Urea Nitrogen 8 mg/dL (9-20); Calcium 9.1 mg/dL (8.4-10.2); Hemolysis Index 24
[2019-07-21 12:10] LABS: Amphetamine Screen,Urine PRESUMPTIVE NEGATIVE; Benzodiazepines Screen,Urine PRESUMPTIVE NEGATIVE; Cannabinoid Screen,Urine PRESUMPTIVE NEGATIVE; Cocaine Screen,Urine PRESUMPTIVE NEGATIVE; Methadone Screen,Urine PRESUMPTIVE NEGATIVE; Opiate Screen,Urine PRESUMPTIVE NEGATIVE
[2019-07-21] MEDS ORDERED: NAPROXEN 500 MG TAB PO ONE (23:03)
[2019-07-21] MEDS ORDERED: ACETAMINOPHEN 500 MG TAB PO ONE (23:19)
[2019-07-21] MEDS: AMOXICILLIN/K CLAV 875/125MG TAB PO SCH (23:33)
[2019-07-22] MEDS: AMOXICILLIN/K CLAV 875/125MG TAB PO SCH ×2 (10:07→23:07)
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
[2019-07-22] MEDS ORDERED: risperiDONE 1 MG TAB PO SCH (22:00)
[2019-07-22] MEDS ORDERED: traZODone 50 MG TAB PO SCH (22:00)
[2019-07-22] MEDS ORDERED: carBAMazepine 200 MG TAB PO SCH (22:00)
[2019-07-23 03:01] VITALS: BP 130/80
== END 2019-07-23 03:05 ==
LOC: ED 06:36
DX: R44.0 Auditory hallucinations (principal); R44.1 Visual hallucinations; R45.851 Suicidal ideations; E11.9 Type 2 diabetes mellitus without complications; K21.9 Gastro-esophageal reflux disease without esophagitis; M19.90 Unspecified osteoarthritis, unspecified site; Z79.1 Long term (current) use of non-steroidal anti-inflammatories (NSAID); Z79.899 Other long term (current) drug therapy; Z88.6 Allergy status to analgesic agent
CPT/HCPCS: 36415; 80048; 80307; 80320; 81001; 85025; G0480

== ENCOUNTER 2019-09-04 02:14 | Emergency (ER) | payer SELFPAY ==
[2019-09-04] MEDS ORDERED: CYCLOBENZAPRINE 10 MG TAB PO ONE (03:55)
[2019-09-04] MEDS ORDERED: dexAMETHasone 20 MG/5 ML VIAL IM ONE (03:55)
[2019-09-04] MEDS ORDERED: ACETAMINOPHEN 325 MG TAB PO ONE (03:55)
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
[2019-09-04 04:48] VITALS: BP 141/96
== END 2019-09-04 04:45 | disposition home or self-care (01) ==
LOC: ED 02:14
DX: M54.5 Low back pain (principal); E11.9 Type 2 diabetes mellitus without complications; K21.9 Gastro-esophageal reflux disease without esophagitis; M19.90 Unspecified osteoarthritis, unspecified site; Z79.899 Other long term (current) drug therapy; Z88.8 Allergy status to other drugs, medicaments and biological substances
CPT/HCPCS: 99282; J1100

== ENCOUNTER 2020-01-07 12:22 | Emergency (ER) | payer SELFPAY ==
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
[2020-01-07 13:50] LABS: Basophils % (Auto) 0.4 % (0.0-1.8); Eosinophils # (Auto) 0.1 K/mm3 (0.0-0.4); Eosinophils % (Auto) 1.2 % (0.0-4.3); Hematocrit 49.2 % (35.5-45.6); Hemoglobin 16.6 gm/dl (11.8-15.2); Lymphocytes # (Auto) 1.5 K/mm3 (1.2-5.4); Lymphocytes % (Auto) 29.7 % (13.4-35.0); Mean Corpuscular HGB Conc 34 % (32-34); Mean Corpuscular Volume 95 fl (84-94); Monocytes # (Auto) 0.3 K/mm3 (0.0-0.8); Monocytes % (Auto) 6.3 % (0.0-7.3); Platelet Count 231 K/mm3 (140-440); Red Blood Count 5.18 M/mm3 (3.65-5.03); Red Cell Distribution Width 13.9 % (13.2-15.2)
[2020-01-07 14:05] LABS: BUN/Creatinine Ratio 7; Blood Urea Nitrogen 7 mg/dL (9-20); Calcium 9.4 mg/dL (8.4-10.2); Hemolysis Index 13
[2020-01-07 14:17] LABS: Bilirubin,Urine NEG (Negative); Blood,Urine NEG (Negative); Calcium Oxalate Crystals,Urine 1+; Color,Urine Yellow (Yellow); Mucus,Urine 2+ /HPF; Protein,Urine <15 mg/dL mg/dL (Negative)
[2020-01-07 14:40] LABS: Amphetamine Screen,Urine Negative; Benzodiazepines Screen,Urine Negative; Cannabinoid Screen,Urine Negative; Methadone Screen,Urine Negative; Opiate Screen,Urine Negative
[2020-01-07 14:56] LABS: Cocaine Screen,Urine Positive
--- NOTE | 2020-01-08 08:07 | Emergency Department Report ---
Blank Doc - Documentation Documentation: Pt seen and evaluated by mental health dance historian. Does not meet inpatient crit svetlana. Upon informing pt that he will be discharged, pt does not state that he is suicidal. Instead, pt states, "But I need to talk to [facility] about my social security because they're the ones that filed it." I informed pt that he will not need to be ADMITTED to the facility in order to discuss business issues such as this. Pt advised to call the facility if this is his reason for wanting to go to [facility]. Pt states "ok". He will be discharged at this time.
[2020-01-08 08:41] VITALS: BP 115/72
== END 2020-01-08 08:27 ==
LOC: ED 12:22
DX: R45.851 Suicidal ideations (principal); E11.9 Type 2 diabetes mellitus without complications; K21.9 Gastro-esophageal reflux disease without esophagitis; F25.9 Schizoaffective disorder, unspecified; M19.90 Unspecified osteoarthritis, unspecified site; F17.200 Nicotine dependence, unspecified, uncomplicated; F14.90 Cocaine use, unspecified, uncomplicated; Z88.6 Allergy status to analgesic agent; Z79.899 Other long term (current) drug therapy; Z98.890 Other specified postprocedural states; Z59.0 Homelessness
CPT/HCPCS: 36415; 80048; 80307; 80320; 81001; 85025; G0480

== ENCOUNTER 2020-04-22 07:19 | Emergency (ER) | payer MEDICAID ==
[2020-04-22 07:45] VITALS: BP 136/81
--- NOTE | 2020-04-22 09:02 | XRay Report ---
XR ribs BILAT w/PA chest 4+V INDICATION / CLINICAL INFORMATION: SOB COMPARISON: None. FINDINGS: CHEST: Heart size and pulmonary vasculature are within normal limits. There is a small right basilar pleural fluid. Lungs are clear of consolidation. No evidence of pneumothorax. BONES: There are displaced right posterior fifth through 10th rib fractures. IMPRESSION: Displaced right posterior fifth through 10th rib fractures with mild right basilar pleural fluid. No discrete pneumothorax. Signer Name: Al Cantu MD Signed: 04/22/2020 8:57 AM Workstation Name: [id number]
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
== END 2020-04-22 10:36 | disposition home or self-care (01) ==
LOC: ED 07:19
DX: S22.41XA Multiple fractures of ribs, right side, initial encounter for closed fracture (principal); I10 Essential (primary) hypertension; E11.9 Type 2 diabetes mellitus without complications; M19.90 Unspecified osteoarthritis, unspecified site; Z88.8 Allergy status to other drugs, medicaments and biological substances; F20.9 Schizophrenia, unspecified; F17.200 Nicotine dependence, unspecified, uncomplicated; F14.10 Cocaine abuse, uncomplicated; Z79.899 Other long term (current) drug therapy; X58.XXXA Exposure to other specified factors, initial encounter; Y93.89 Activity, other specified; Y92.89 Other specified places as the place of occurrence of the external cause; Y99.8 Other external cause status
CPT/HCPCS: 71111; 99283

== ENCOUNTER 2020-04-24 04:32 | Emergency (ER) | payer MEDICAID | END 2020-04-24 09:50 | disposition left against medical advice (07) | LOC: ED 04:32 | DX: M54.2 Cervicalgia (principal); Z53.21 Procedure and treatment not carried out due to patient leaving prior to being seen by health care provider ==

== ENCOUNTER 2020-04-27 02:52 | Emergency (ER) | payer MEDICAID ==
[2020-04-27 10:31] VITALS: BP 166/91
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
--- NOTE | 2020-04-27 11:20 | XRay Report ---
RIGHT FOOT 2 VIEWS INDICATION / CLINICAL INFORMATION: MAIN. COMPARISON: None available. FINDINGS: Moderate degenerative change in the first metatarsophalangeal joint. Mild degenerative change in the tarsonavicular joint. A small Achilles spur is present. No other significant skeletal abnormality Signer Name: Kenny Parr MD FACHailey Signed: 04/27/2020 11:16 AM Workstation Name: [id number]
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
--- NOTE | 2020-04-27 12:02 | Vascular Lab Report ---
VL venous duplex LE RT INDICATION / CLINICAL INFORMATION: swelling, pain. TECHNIQUE: Duplex doppler imaging was performed using venous compression and other maneuvers. COMPARISON: None available. FINDINGS: No venous thrombosis is identified within the visualized extremity vasculature. ADDITIONAL FINDINGS: None. IMPRESSION: 1. No sonographic evidence for DVT in the visualized right lower extremity vasculature.. Signer Name: Robert Hidalgo MD Signed: 04/27/2020 11:57 AM Workstation Name: [id number]
[2020-04-27 12:54] LABS: Hematocrit 42.1 % (35.5-45.6); Hemoglobin 14.2 gm/dl (11.8-15.2); Mean Corpuscular HGB Conc 34 % (32-34); Mean Corpuscular Volume 96 fl (84-94); Platelet Count 323 K/mm3 (140-440); Red Blood Count 4.39 M/mm3 (3.65-5.03); Red Cell Distribution Width 13.6 % (13.2-15.2)
[2020-04-27 13:18] LABS: Alanine Aminotransferase 8 units/L (7-56); Albumin 3.7 g/dL (3.9-5); Blood Urea Nitrogen 8 mg/dL (9-20); Calcium 9.4 mg/dL (8.4-10.2); Hemolysis Index 5
[2020-04-27 13:55] LABS: BUN/Creatinine Ratio 11
[2020-04-27 14:40] LABS: Large Platelets Few; Platelet Estimate Consistent w Auto; RBC Morphology Normal; Total Cells Counted 100
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
== END 2020-04-27 17:10 | disposition home or self-care (01) ==
LOC: ED 02:52
DX: S22.41XA Multiple fractures of ribs, right side, initial encounter for closed fracture (principal); S90.31XA Contusion of right foot, initial encounter; J98.11 Atelectasis; I10 Essential (primary) hypertension; E11.9 Type 2 diabetes mellitus without complications; K21.9 Gastro-esophageal reflux disease without esophagitis; M19.90 Unspecified osteoarthritis, unspecified site; F20.9 Schizophrenia, unspecified; F17.200 Nicotine dependence, unspecified, uncomplicated; Z79.899 Other long term (current) drug therapy; X58.XXXA Exposure to other specified factors, initial encounter; Y93.89 Activity, other specified; Y92.89 Other specified places as the place of occurrence of the external cause; Y99.8 Other external cause status
CPT/HCPCS: 36415; 71046; 71275; 73590; 73620; 80053; 84484; 85007; 85025; 85379; 93971; 99284; Q9967

== ENCOUNTER 2020-06-06 00:45 | Emergency (ER) | payer MEDICAID | END 2020-06-06 06:04 | disposition left against medical advice (07) | LOC: ED 00:45 | DX: R04.0 Epistaxis (principal); Z53.21 Procedure and treatment not carried out due to patient leaving prior to being seen by health care provider ==

== ENCOUNTER 2020-06-06 07:41 | Emergency (ER) | payer MEDICAID ==
[2020-06-06 07:51] VITALS: BP 138/63
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
--- NOTE | 2020-06-06 09:56 | XRay Report ---
XR chest routine 2V INDICATION / CLINICAL INFORMATION: RIGHT RIB PAIN/FELL X 2; HX RIB FRACTURE. COMPARISON: 04/27/2020 FINDINGS: SUPPORT DEVICES: None. HEART /PULMONARY VASCULATURE: No significant abnormality. LUNGS / PLEURA: No significant pulmonary or pleural abnormality. No pneumothorax. ADDITIONAL FINDINGS: Remote right rib fracture deformities. No acute or healing displaced rib fractur e is identified. IMPRESSION: 1. No acute findings. Signer Name: Al Cantu MD Signed: 06/06/2020 9:51 AM Workstation Name: [id number]
--- NOTE | 2020-06-06 09:59 | XRay Report ---
XR spine cervical 2-3V INDICATION / CLINICAL INFORMATION: NECK PAIN/FALL. COMPARISON: CT dated 04/06/2017 FINDINGS: Stable findings of DISH with ossification of the posterior longitudinal ligament. No acute fracture i s detected. There is similar anterolisthesis of C7 on T1. Spinal alignment is otherwise preserved. Pr evertebral soft tissues are within normal limits. The lung apices are clear. IMPRESSION: Stable chronic findings. No acute process detected. Signer Name: Al Cantu MD Signed: 06/06/2020 9:54 AM Workstation Name: [id number]
== END 2020-06-06 10:54 | disposition home or self-care (01) ==
LOC: ED 07:41
DX: M54.2 Cervicalgia (principal); R04.0 Epistaxis; M79.601 Pain in right arm; R07.89 Other chest pain; I10 Essential (primary) hypertension; E11.9 Type 2 diabetes mellitus without complications; M19.91 Primary osteoarthritis, unspecified site; F20.9 Schizophrenia, unspecified; F17.200 Nicotine dependence, unspecified, uncomplicated; Z98.890 Other specified postprocedural states; Z79.1 Long term (current) use of non-steroidal anti-inflammatories (NSAID); Z79.2 Long term (current) use of antibiotics; Z79.899 Other long term (current) drug therapy; Z88.8 Allergy status to other drugs, medicaments and biological substances
CPT/HCPCS: 71046; 72040

== ENCOUNTER 2021-02-03 06:41 | Emergency (ER) | payer MEDICAID ==
[2021-02-03] MEDS ORDERED: FAMOTIDINE 20 MG/2 ML INJ IV ONE (07:31)
[2021-02-03] MEDS ORDERED: DICYCLOMINE 20 MG TAB PO ONE (07:31)
[2021-02-03] MEDS ORDERED: METOCLOPRAMIDE 10 MG/2 ML INJ IV ONE (07:31)
[2021-02-03] MEDS ORDERED: SODIUM CHLORIDE 0.9% 1000 ML 1,000 ML IV ONE (07:31)
[2021-02-03] MEDS ORDERED: diphenhydrAMINE 50 MG/ML VIAL IV ONE (07:31)
[2021-02-03 08:02] LABS: Basophils % (Auto) 0.6 % (0.0-1.8); Eosinophils # (Auto) 0.2 K/mm3 (0.0-0.4); Eosinophils % (Auto) 3.3 % (0.0-4.3); Hematocrit 40.2 % (35.5-45.6); Lymphocytes # (Auto) 1.5 K/mm3 (1.2-5.4); Lymphocytes % (Auto) 25.1 % (13.4-35.0); Mean Corpuscular HGB Conc 35 % (32-34); Mean Corpuscular Volume 93 fl (84-94); Monocytes # (Auto) 0.7 K/mm3 (0.0-0.8); Monocytes % (Auto) 12.5 % (0.0-7.3); Platelet Count 222 K/mm3 (140-440); Red Blood Count 4.31 M/mm3 (3.65-5.03); Red Cell Distribution Width 13.4 % (13.2-15.2)
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
[2021-02-03 08:29] LABS: Alanine Aminotransferase 15 units/L (7-56); Albumin 4.4 g/dL (3.9-5); BUN/Creatinine Ratio 19; Blood Urea Nitrogen 15 mg/dL (9-20); Calcium 9.3 mg/dL (8.4-10.2); Hemolysis Index 4
--- NOTE | 2021-02-03 10:41 | Cat Scan Report ---
CT ABDOMEN AND PELVIS WITH CONTRAST INDICATION / CLINICAL INFORMATION: Unspecified abdominal pain. TECHNIQUE: Axial CT images were obtained through the abdomen and pelvis after 100 cc Omnipaque [address] scans at this location are performed using CT dose reduction for ALARA by means of automated exposure control. COMPARISON: CT abdomen and pelvis without contrast dated 11/03/2017. FINDINGS: LOWER CHEST: No significant abnormality. LIVER: An anterior right hepatic lobe cyst measuring up to 8 mm is unchanged. No other significant ab normality. GALLBLADDER: No significant abnormality. BILE DUCTS: No significant abnormality. PANCREAS: No significant abnormality. SPLEEN: No significant abnormality. ADRENALS: No significant abnormality. KIDNEYS / URETERS: A simple left lower renal pole cyst measuring up to 9 mm has not significantly king nged. No other significant abnormalities. STOMACH / SMALL BOWEL: No significant abnormality. COLON: No significant abnormality. APPENDIX: No significant abnormality. PERITONEUM: No free fluid. No free air. No fluid collection. LYMPH NODES: No significant adenopathy. AORTA / ARTERIES: No significant abnormality. IVC / VEINS: No significant abnormality. URINARY BLADDER: The bladder is underdistended with marked generalized thickening and minimal perives ical fat stranding. No other significant abnormality. REPRODUCTIVE ORGANS: No significant abnormality. ADDITIONAL FINDINGS: None. BONES: No acute abnormality. There are mild degenerative changes of the spine and pelvis. IMPRESSION: 1. Bladder wall thickening with minimal perivesical fat stranding could represent cystitis. Please co rrelate with the clinical findings. 2. No other acute findings to explain the patient's pain. 3. Additional findings as above. Signer Name: Chau Bettencourt MD Signed: 02/03/2021 10:36 AM Workstation Name: [id number]
[2021-02-03 11:45] LABS: Bilirubin,Urine NEG (Negative); Blood,Urine NEG (Negative); Color,Urine Yellow (Yellow); Mucus,Urine FEW /HPF; Protein,Urine <15 mg/dL mg/dL (Negative)
[2021-02-03 11:57] LABS: Amphetamine Screen,Urine Negative; Benzodiazepines Screen,Urine Negative; Cannabinoid Screen,Urine Negative; Cocaine Screen,Urine Negative; Methadone Screen,Urine Negative; Opiate Screen,Urine Negative
[2021-02-03 12:39] VITALS: BP 120/77
== END 2021-02-03 12:51 | disposition home or self-care (01) ==
LOC: ED 06:41
DX: R11.0 Nausea (principal); R10.84 Generalized abdominal pain; E11.8 Type 2 diabetes mellitus with unspecified complications; I10 Essential (primary) hypertension; Z88.8 Allergy status to other drugs, medicaments and biological substances
CPT/HCPCS: 36415; 74177; 80053; 80307; 81001; 83690; 85025; 96361; 96374; 96375; 99284; J1200; J2765; J7030; Q9967; 80320; G0480

== ENCOUNTER 2021-12-28 10:00 | Emergency (ER) | payer MEDICAID ==
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
--- NOTE | 2021-12-28 13:42 | XRay Report ---
G TUBE STUDY 3 VIEWS INDICATION: Status post G-tube replacement. COMPARISON: CT abdomen and pelvis with contrast from 02/03/2021. FINDINGS: There is expected positioning of a gastrostomy tube with injected contrast opacifying the stomach and small bowel as expected. No small or large bowel dilatation is noted. The colon contains a large suzanne unt of stool. No free air is identified. The bones are unchanged. IMPRESSION: Expected positioning of a gastrostomy tube without other significant changes from the prior CT. Signer Name: Chau Bettencourt MD Signed: 12/28/2021 1:37 PM Workstation Name: [email or web address]
[2021-12-28 16:35] VITALS: BP 138/78
== END 2021-12-28 16:37 ==
LOC: ED 10:00
DX: K94.23 Gastrostomy malfunction (principal); I10 Essential (primary) hypertension; E11.9 Type 2 diabetes mellitus without complications
CPT/HCPCS: 43762; 74018; 99283; Q9967

== ENCOUNTER 2022-02-01 09:11 | Outpatient (CLI) | payer MEDICAID ==
--- NOTE | 2022-02-01 13:10 | Fluoroscopy Report ---
MODIFIED BARIUM SWALLOW INDICATION: R13.12 DYSPHAGIA TECHNIQUE: Swallowing was evaluated in the lateral position under direct fluoroscopy. FINDINGS: The patient was evaluated with thin liquids, nectar, puree and semisolid consistencies. Deglutition appears normal. There was one episode of silent aspiration with the thin liquids using a straw. There is mild piriform sinus residuals with all consistencies. IMPRESSION: Silent aspiration with thin liquids. Piriform sinus residuals with all consistencies. Pl ease correlate with speech therapy's formal report. Fluoroscopic time: 3.9 minutes Number of fluoroscopic images: 1 Signer Name: Moncho De Dios Jr, MD Signed: 02/01/2022 1:06 PM Workstation Name: [id number]
== END 2022-02-01 09:12 | disposition home or self-care (01) ==
LOC: PT 09:11
PROVIDERS: ATTEND Internal Medicine
DX: R13.12 Dysphagia, oropharyngeal phase (principal)
CPT/HCPCS: 74230